=== PATIENT | female | born 1995 | race Caucasian/White ===

== ENCOUNTER → 2017-12-08 08:24 | Outpatient (CLI) | payer OTHER, SELFPAY ==
[2017-12-08 10:28] LABS: Hemoglobin 12.2 g/dL (12.0-16.0)
[2017-12-08 10:31] LABS: GTT (PREG) 1 Hour PP 50gm Dose 79 mg/dL (76-139)
== END ==
PROVIDERS: PCP Family Medicine; Visit Provider Obstetrics & Gynecology
DX: Z34.92 Encounter for supervision of normal pregnancy, unspecified, second trimester (principal)
CPT/HCPCS: 36415; 82950; 85014; 85018; 86850

== ENCOUNTER → 2018-02-01 09:51 | Outpatient (CLI) | payer OTHER, SELFPAY ==
[2018-02-02 07:55] LABS: Strep Grp B PCR NEG for Grp B Strep
== END ==
PROVIDERS: PCP Family Medicine; Visit Provider Obstetrics & Gynecology
DX: Z34.83 Encounter for supervision of other normal pregnancy, third trimester (principal)
CPT/HCPCS: 87653

== ENCOUNTER 2018-03-02 08:52 | Inpatient (IN) | payer OTHER, SELFPAY ==
[2018-03-02] MEDS: LACTATED RINGERS 1,000 ML 125 ML IV (09:30)
[2018-03-02] MEDS: OXYTOCIN PREMIX 30 UNIT/500 ML PLAST..BAG IV (09:30)
[2018-03-02 10:12] LABS: Add Manual Diff / Slide Review NO; Basophils Percent Auto 0.3 % (0-2); Eosinophils Percent Auto 1.3 % (2-4); Hematocrit 37.7 % (36-46); Hemoglobin 13.1 g/dL (12.0-16.0); Lymphocytes Percent Auto 22.4 % (25-40); Mean Corpuscular HGB Conc 34.8 % (30-36); Mean Corpuscular Hemoglobin 32.4 PG (26-34); Mean Corpuscular Volume 93.2 fL (80-100); Monocytes Percent Auto 8.3 % (3-14); Neutrophils Absolute Auto 5800 /uL (3000-5900); Neutrophils Percent Auto 67.7 % (50-75); Platelet Count 215 X10^3/uL (150-400); Red Blood Cell Count 4.04 X10^6/uL (4.0-5.2); Red Cell Distribution Width 13.7 % (11.6-14.8); White Blood Cell Count 8.5 X10^3/uL (4.5-11.0)
[2018-03-02 13:13] VITALS: BP 117/67
--- NOTE | 2018-03-02 16:55 | PM.OBHP.1 ---
OB HPI Date/Time Date of admission: 03/02/18 Date Patient Seen: 03/02/18 Time Patient Seen: 10:30 History of Present Illness Chief complaint: OBS : 2 Para: 1 Estimated Date of Delivery: 03/02/18 Estimated Gestational Age (weeks): 40 Narrative: Mis Danielle is a 23 year old female 2 para 1 at 40 weeks gestation who presents for induction of labor Indications Indication for induction OB: maternal discomfort History of Present care: good care Dating criteria: LMP confirmed by 1st trimester US Ultrasounds: normal 1st trimester US and normal mid trimester US Obstetrical complications: none Medical complications: none Preadmission Labs Blood type: 0 (-) negative -: Antibody screen: negative, GBS status: negative, HBsAG: negative, HIV: negative, HSV 1: negative, HSV 2: negative and RPR/VDLR: negative -: Chlamydia screen: not detected and Gonorrhea screen: not detected -: Rubella: immune and Varicella: immune HCT: 35 HCAB: negative PAP: Normal 1 hr GTT: 79 Prior (ies) History: 11/05/13 epid [place] 8#15oz 41 weeks Evaluation Evaluation Baseline heart rate: 135 Variability: Moderate (11-25) monitor accelerations: Present monitor decelerations: Absent Contraction Frequency (minutes): 3 Uterine Contraction Intensity: Strong/Firm Category of Tracing: I Cervical dilation (cm): 2 Cervical effacement (%): 75 station: -1 Laboratory results: Laboratory Tests 03/02/18 03/02/18 09:15 09:15 WBC 8.5 RBC 4.04 Hgb 13.1 Hct 37.7 MCV 93.2 MCH 32.4 MCHC 34.8 RDW 13.7 Plt Count 215 Neut % (Auto) 67.7 Lymph % (Auto) 22.4 L [place] % (Auto) 8.3 Eos % (Auto) 1.3 L Baso % (Auto) 0.3 Neut # (Auto) 5800 Blood Type O Negative Antibody Screen Negative PFSH Social History Smoking Status: Never smoker Meds Home Medications Medication Instructions Recorded Confirmed Type ondansetron [Zofran ODT] 4 mg SUBLINGUAL Q6HP PRN #20 odt 07/27/17 03/02/18 Rx vit-iron fum-folic ac 1 tab PO DAILY #0 08/03/17 03/02/18 History [Mynatal] Double Electric Breast Pump 1 ea [id number] .prn #1 02/15/18 03/02/18 Rx [id number] Allergies Allergy/AdvReac Type Severity Reaction Status Date / Time No Known Allergies Allergy Uncoded 11/03/17 12:42 Exam Vital Signs (past 8 hours): - 03/02/18 13:13 Blood Pressure 117/67 Narrative Exam Narrative: Generally: Patient is sitting up in bed, no acute distress Lungs: Clear to auscultation bilaterally Cardiovascular: Regular rate and rhythm Fundal height: 41 cm Estimated weight: 8 1/2 # Extremities: Trace edema, negative [place] Objective Labs Result Diagrams: 03/02/18 09:15 Labs: Laboratory Results - last 24 hr 03/02/18 03/02/18 09:15 09:15 WBC 8.5 RBC 4.04 Hgb 13.1 Hct 37.7 MCV 93.2 MCH 32.4 MCHC 34.8 RDW 13.7 Plt Count 215 Neut % (Auto) 67.7 Lymph % (Auto) 22.4 L [place] % (Auto) 8.3 Eos % (Auto) 1.3 L Baso % (Auto) 0.3 Neut # (Auto) 5800 Blood Type O Negative Antibody Screen Negative Assessment and Plan (1) 40 weeks gestation of : Current visit: Yes Status: Acute (2) Encounter for induction of labor: Current visit: Yes Status: Acute Assessment: 23-year-old 2 para 1 at 40 weeks gestation for induction of labor Plan: Pitocin per protocol 2 Epidural as necessary Expected management to spontaneous vaginal delivery
--- NOTE | 2018-03-02 18:12 | PM.OBPRVD ---
Events: Labor Induction Delivery date: 03/02/18 Intrapartal events: None Induction method: per pitocin protocol Delivery augmentation: rupture of membranes Delivery monitor: external FHT and external uterine Route of delivery: Episiotomy description: None Laceration description: Superficial (Right labial) Delivery repair: chromic (4-0) Estimated blood loss (mL): 100 Anesthesia type: Epidural Complications: None Narrative: Patient complete and pushed for 20 min. At 5:59 p.m., a live male delivered spontaneously over an intact perineum. A nuchal cord x1 reduced on the perineum. The remainder of the body delivered without difficulty and was placed on mom's abdomen. The cord was double clamped and cut. Cord bloods were obtained. The placenta delivered intact with a 3 vessel cord at 6:05 p.m.. Fundus massaged to firm. Estimated blood loss 100 cc. There was a superficial right labial laceration which was repaired with 4 0 chromic. Hemostasis was achieved. Apgars 8 at 1 min and 9 at 5 min. Epidural analgesia. . Mom and infant stable to recovery. Plan for aftercare: To routine care
[2018-03-02] MEDS: IBUPROFEN 600 MG TABLET PO (20:02)
[2018-03-02] MEDS: OXYCODONE/ACETAMINOPHEN 5/325 TABLET 2 TAB PO (21:04)
[2018-03-03] MEDS: OXYCODONE/ACETAMINOPHEN 5/325 TABLET 2 TAB PO ×4 (04:37→19:39)
[2018-03-03 05:46] LABS: Hematocrit 37.3 % (36-46); Hemoglobin 12.7 g/dL (12.0-16.0)
[2018-03-03] MEDS: IBUPROFEN 600 MG TABLET PO ×2 (08:09→16:11)
[2018-03-03] MEDS: RHO(D) IMMUNE GLOBULIN 1,500 UNIT SYRINGE 1500 UNIT IM (13:31)
[2018-03-03 14:35] VITALS: BP 100/64; PULSE 64; RESP 16; TEMP 37.1
[2018-03-03 18:27] VITALS: BP 112/70; PULSE 73; RESP 16; TEMP 36.6
[2018-03-03] MEDS: DERMOPLAST SPRAY 20% 60 ML 1 SPRAY TOP (19:34)
== END 2018-03-03 21:30 | disposition home or self-care (01) | DRG 775 ==
PROVIDERS: Admitting Provider Obstetrics & Gynecology; PCP Family Medicine; Visit Provider Obstetrics & Gynecology
DX: O26.813 Pregnancy related exhaustion and fatigue, third trimester (principal); Z3A.40 40 weeks gestation of pregnancy; Z37.0 Single live birth; O69.81X0 Labor and delivery complicated by cord around neck, without compression, not applicable or unspecified; O70.0 First degree perineal laceration during delivery
CPT/HCPCS: 01967; 36415; 59050; 59410; 85014; 85018; 85025; 85461; 86850; 86900; 86901; G0379; J2590; J2790

== ENCOUNTER 2018-04-17 18:46 | Emergency (ER) | payer OTHER, SELFPAY ==
[2018-04-17 19:10] VITALS: BP 89/61; PULSE 127; RESP 22; TEMP 39.9; O2SAT 98
[2018-04-17 19:18] VITALS: TEMP 39.9
[2018-04-17] MEDS: ACETAMINOPHEN 325 MG TABLET 975 MG PO (19:18)
--- NOTE | 2018-04-17 19:27 | DI.RAD.S_ITS ---
PROCEDURE: XR CHEST 1V INDICATIONS: suspected sepsis TECHNIQUE: One view of the chest was acquired. COMPARISON: None. FINDINGS: Surgical changes and devices: None. Lungs and pleura: No pleural effusions or pneumothorax. Lungs are clear. Mediastinum: Mediastinal contours appear normal. Heart size is normal. Bones and chest wall: No suspicious bony lesions. Overlying soft tissues appear unremarkable. IMPRESSION: No acute cardiopulmonary disease process. Dictated by: Barbara Bowling MD, PhD on 04/17/2018 at 20:06 Approved by: Barbara Bowling MD, PhD on 04/17/2018 at 20:06
--- NOTE | 2018-04-17 19:57 | ED.FEVER ---
HPI - Fever General Chief Complaint: Fever Stated Complaint: HIGH FEVER Time Seen by Provider: 04/17/18 19:53 Source: patient Mode of arrival: ambulatory Limitations: no limitations History of Present Illness HPI Narrative: The patient is a 23-year-old female who presents with overall body aches and fever. Her right breast has been hurting her quite a lot lately. She is currently 6 weeks and has been breast feeding. She states she is also extremely short of breath when she gets up to walk. They were recently in a very long car ride [place] the country they did get out to walk a however her shortness of breath is quite bad she says. She denies any cough or wheezing. She has no painful or frequent urination no vaginal bleeding. She had labor induction on 03/02/2018 and had a normal vaginal delivery MD complaint: fever Related Data Home Medications Medication Instructions Recorded Confirmed vit-iron fum-folic ac 1 tab PO DAILY #0 08/03/17 03/07/18 [Mynatal] Previous Rx's Medication Instructions Recorded ondansetron [Zofran ODT] 4 mg SUBLINGUAL Q6HP PRN #20 odt 07/27/17 Double Electric Breast Pump 1 ea [id number] .prn #1 02/15/18 [id number] oxycodone-acetaminophen [Percocet] 2 tab PO Q4-6H PRN #20 tab 03/03/18 hydrocortisone 2.5 % topical cream 1 applictn VT QD-BID PRN #28.35 03/04/18 with perineal applicator gram lidocaine 3 %-hydrocortisone 2.5 % 1 applictn VT BID #15 gram 03/04/18 (7 gram) rectal gel cephalexin [Keflex] 500 mg PO TID #21 cap 04/17/18 Allergies Allergy/AdvReac Type Severity Reaction Status Date / Time No Known Drug Allergies Allergy Verified 03/07/18 13:12 Review of Systems Review of Systems All systems reviewed & are unremarkable except as noted in HPI and below Constitutional Reports chills, Reports fatigue, Reports fever(s) and Reports weakness Cardiovascular Denies chest pain, Denies irregular heart rhythm, Denies lightheadedness, Denies palpitations, Denies dyspnea, Reports dyspnea on exertion and Denies orthopnea Respiratory Reports as per HPI, Denies cough, Denies dyspnea, Reports dyspnea on exertion and Denies wheezing Gastrointestinal Gastrointestinal: Denies abdominal pain, Denies change in bowel habits, Denies diarrhea, Denies nausea and Denies vomiting Genitourinary Denies hematuria, Denies flank pain, Denies urinary incontinence and Denies urinary urgency Musculoskeletal Denies back pain, Denies muscle weakness, Denies numbness and Denies tingling Integumentary/Breasts Reports breast swelling and Reports breast pain Neurologic Denies numbness, Denies tingling and Reports weakness Endocrine Reports fatigue and Denies palpitations Allergic/Immunologic Denies wheezing PFSH Medical History Healthy adult (Acute) Social History Smoking Status: Never smoker Exam Initial Vital Signs Initial Vital Signs: Vital Signs Temperature 103.9 F H 04/17/18 19:10 Pulse Rate 127 H 04/17/18 19:10 Respiratory Rate 22 04/17/18 19:10 Blood Pressure 89/61 L 04/17/18 19:10 Pulse Oximetry 98 04/17/18 19:10 Const General: cooperative and well developed Nutritional Appearance: well nourished Orientation: alert, awake, oriented x3 and not confused Eyes General: appearance normal, both eyes and all related structures Neck Neck: normal visual inspection, trachea midline, No lymphadenopathy, No midline deformity and No JVD Lymphatic: No lymphedema Chest Breast inspection: normal inspection of the breasts (Left breast within normal limits slightly tender to touch no abnormality appreciated) and abnormal inspection of the breast (Right breast does have some erythema no masses or abscesses no nipple discharge no cracks or ab normal nipple or areola) Resp Effort & Inspection: normal respiratory effort, able to speak in complete sentences, no respiratory distress and no use of accessory muscles Auscultation: clear to auscultation bilaterally, no rales, no rhonchi and no wheezes Cardio Rate: regular rate Rhythm: regular rhythm Heart Sounds: no click, no gallops, no murmurs and no rubs Pulses: normal peripheral pulses GI Inspection: non-distended Palpation: soft, no hepatosplenomegaly, No guarding, No pulsatile mass and No tender Auscultation: normal bowel sounds Skin General: no rashes or lesions noted, No jaundice and No petechiae Neuro General: alert, oriented x3, gait normal and no focal motor deficits Speech: speech normal Course Orders Ordered: ED Orders 04/17/18 19:27 XR chest 1V Stat 04/17/18 19:45 Complete Blood Count AUTO DIFF Stat Comprehensive Metabolic Panel Stat Lactate (Lactic Acid) Stat Lipase Stat Partial Thromboplastin Time Stat Procalcitonin Stat Prothrombin Time INR Stat 04/17/18 20:14 CT angio chest PE protocol Stat 04/17/18 20:30 Blood Culture Stat Discontinued Medications Acetaminophen (Tylenol) 975 mg PO NOW ONE Stop: 04/17/18 19:18 Last Admin: 04/17/18 19:18 Dose: 975 mg Sodium Chloride (Normal Saline 0.9%) 1,000 mls @ 1,000 mls/hr IV BOLUS ONE Stop: 04/17/18 20:26 Last Infusion: 04/17/18 21:23 Dose: 0 mls/hr Admin: 04/17/18 20:07 Dose: 1,000 mls/hr Vital Signs - 8 hr 04/17/18 20:04 04/17/18 21:26 04/18/18 00:07 Temperature 99.2 F 98.4 F Pulse Rate 106 H 75 Respiratory Rate 26 H 17 Blood Pressure 91/56 L Blood Pressure [Right Arm] 101/59 L Pulse Oximetry 98 97 MDM - Fever Lab Data Attestation: I reviewed the patient's lab results. Result diagrams: 04/17/18 19:45 04/17/18 19:45 Lab Results 04/17/18 04/17/18 04/17/18 Range/Units 19:45 19:45 19:45 WBC 8.8 (4.5-11.0) X10^3/uL RBC 4.88 (4.0-5.2) X10^6/uL Hgb 15.1 (12.0-16.0) g/dL Hct 44.6 (36-46) % MCV 91.4 (80-100) fL MCH 31.0 (26-34) PG MCHC 33.9 (30-36) % RDW 12.5 (11.6-14.8) % Plt Count 214 (150-400) X10^3/uL Neut % (Auto) 80.9 H (50-75) % Lymph % (Auto) 12.1 L (25-40) % [place] % (Auto) 6.0 (3-14) % Eos % (Auto) 0.7 L (2-4) % Baso % (Auto) 0.3 (0-2) % Neut # (Auto) 7200 H (2326-4836) /uL PT 13.7 H (10.1-12.7) SECONDS INR 1.3 (0.9-1.3) APTT 34 (26.4-36.2) SECONDS Sodium (137-145) mmol/L Potassium (3.4-5.1) mmol/L Chloride (98-107) mmol/L Carbon Dioxide (22-32) mmol/L BUN (7-17) mg/dL Creatinine (0.52-1.04) mg/dL Estimated GFR (>60) mL/min BUN/Creatinine Ratio (6-22) Glucose (70-100) mg/dL Lactate (0.7-2.1) mmol/L Calcium (8.4-10.2) mg/dL Total Bilirubin (0.2-1.3) mg/dL AST (14-36) IU/L ALT (9-52) IU/L Alkaline Phosphatase (38-126) U/L Total Protein (6.3-8.2) g/dL Albumin (3.5-5.0) g/dL Globulin (1.7-4.1) g/dL Albumin/Globulin Ratio (1.0-2.8) Lipase (23-300) U/L Procalcitonin < 0.05 (<0.5) ng/mL 04/17/18 04/17/18 Range/Units 19:45 19:45 WBC (4.5-11.0) X10^3/uL RBC (4.0-5.2) X10^6/uL Hgb (12.0-16.0) g/dL Hct (36-46) % MCV (80-100) fL MCH (26-34) PG MCHC (30-36) % RDW (11.6-14.8) % Plt Count (150-400) X10^3/uL Neut % (Auto) (50-75) % Lymph % (Auto) (25-40) % [place] % (Auto) (3-14) % Eos % (Auto) (2-4) % Baso % (Auto) (0-2) % Neut # (Auto) (6641-0198) /uL PT (10.1-12.7) SECONDS INR (0.9-1.3) APTT (26.4-36.2) SECONDS Sodium 142 (137-145) mmol/L Potassium 3.9 (3.4-5.1) mmol/L Chloride 103 (98-107) mmol/L Carbon Dioxide 22 (22-32) mmol/L BUN 15 (7-17) mg/dL Creatinine 1.00 (0.52-1.04) mg/dL Estimated GFR > 60.0 (>60) mL/min BUN/Creatinine Ratio 15.0 (6-22) Glucose 89 (70-100) mg/dL Lactate 0.9 (0.7-2.1) mmol/L Calcium 9.4 (8.4-10.2) mg/dL Total Bilirubin 0.8 (0.2-1.3) mg/dL AST 36 (14-36) IU/L ALT 39 (9-52) IU/L Alkaline Phosphatase 85 (38-126) U/L Total Protein 8.4 H (6.3-8.2) g/dL Albumin 4.8 (3.5-5.0) g/dL Globulin 3.6 (1.7-4.1) g/dL Albumin/Globulin Ratio 1.3 (1.0-2.8) Lipase 96 (23-300) U/L Procalcitonin (<0.5) ng/mL Point of Care Testing Test Results Negative Urine Dip Bedside Urine Glucose Negative Bedside Urine Bilirubin - Negative Bedside Urine Ketone ++ 40 Urine Specific [place] 1.015 Bedside Urine Occult Blood - Negative Bedside Urine pH 6.0 Bedside Urine Protein - Negative Bedside Urine Urobilinogen - Negative Bedside Urine Nitrite - Negative Bedside Urine Leukocytes - Negative Esterase Imaging Data Chest x-ray: Radiologist's impression: PROCEDURE: XR CHEST 1V INDICATIONS: suspected sepsis TECHNIQUE: One view of the chest was acquired. COMPARISON: None. FINDINGS: Surgical changes and devices: None. Lungs and pleura: No pleural effusions or pneumothorax. Lungs are clear. Mediastinum: Mediastinal contours appear normal. Heart size is normal. Bones and chest wall: No suspicious bony lesions. Overlying soft tissues appear unremarkable. IMPRESSION: No acute cardiopulmonary disease process. 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 Heart rate has definitely improved with fever control and IV fluids. She appears to have mastitis of her right breast. No evidence of PE has no leukocytosis and normal lactic acid. She feels ready and able to go home. Discharge Plan Departure Patient Disposition: Home Clinical Impression: Mastitis, acute Discharge Date/Time: 04/18/18 00:10 Interventions: ED Discharge Assessment Last Done: 04/18/18 00:07 Instructions: DI for Mastitis Activity Restrictions/Additional Instructions: *You have been diagnosed with mastitis *What to do: Warm compresses, continue breast-feeding, continue pumping *Continue to take medications as directed Keflex 500 mg 3 times a day *Follow up with your primary care provider in 2-3 days *Return to ER if you should have worsening redness, fever, pain or any new, worsening or concerning symptoms Prescriptions: New cephalexin [Keflex] 500 mg capsule 500 mg PO TID Qty: 21 RF: 0 No Action ondansetron [Zofran ODT] 4 MG tablet,disintegrating 4 mg Sublingual Q6HP PRNQty: 20 RF: 1 vit-iron fum-folic ac [Mynatal] 1 EACH capsule 1 tab PO DAILY Qty: 0 RF: 0 hydrocortisone [Anusol-HC] 2.5 % cream with perineal applicator 1 applictn VT QD-BID PRN (Reason: hemorrhoids) Qty: 28.35 RF: 1 lidocaine HCl-hydrocortison ac 3 %-2.5 % (7 gram) gel 1 applictn VT BID Qty: 15 RF: 1 Double Electric Breast Pump 1 ea [id number] .prn Qty: 1 RF: 0 oxycodone-acetaminophen [Percocet] 5-325 mg tablet 2 tab PO Q4-6H PRN (Reason: pain) Qty: 20 RF: 0 Referrals: Keli Forbes MD [Primary Care Provider] -
[2018-04-17 20:00] LABS: Add Manual Diff / Slide Review NO; Basophils Percent Auto 0.3 % (0-2); Eosinophils Percent Auto 0.7 % (2-4); Hematocrit 44.6 % (36-46); Hemoglobin 15.1 g/dL (12.0-16.0); Lymphocytes Percent Auto 12.1 % (25-40); Mean Corpuscular HGB Conc 33.9 % (30-36); Mean Corpuscular Volume 91.4 fL (80-100); Neutrophils Absolute Auto 7200 /uL (3000-5900); Neutrophils Percent Auto 80.9 % (50-75); Platelet Count 214 X10^3/uL (150-400); Red Blood Cell Count 4.88 X10^6/uL (4.0-5.2); Red Cell Distribution Width 12.5 % (11.6-14.8); White Blood Cell Count 8.8 X10^3/uL (4.5-11.0)
[2018-04-17 20:04] VITALS: BP 101/59; PULSE 106; RESP 26; O2SAT 98
[2018-04-17 20:07] LABS: INR 1.3 (0.9-1.3); Prothrombin Time 13.7 SECONDS (10.1-12.7)
[2018-04-17] MEDS: SODIUM CHLORIDE 0.9% 1,000 ML 1000 ML IV (20:07)
[2018-04-17 20:10] LABS: PTT Partial Thromboplastin Tim 34 SECONDS (26.4-36.2)
[2018-04-17 20:11] LABS: Lactate (Lactic Acid) 0.9 mmol/L (0.7-2.1)
[2018-04-17 20:14] LABS: Alanine Aminotransferase 39 IU/L (9-52); Albumin 4.8 g/dL (3.5-5.0); Albumin Globulin Ratio 1.3 (1.0-2.8); Alkaline Phosphatase 85 U/L (38-126); Aspartate Aminotransferase 36 IU/L (14-36); Bilirubin Total 0.8 mg/dL (0.2-1.3); Blood Urea Nitrogen 15 mg/dL (7-17); Calcium 9.4 mg/dL (8.4-10.2); Carbon Dioxide 22 mmol/L (22-32); Chloride 103 mmol/L (98-107); Estimated Glomerular Filt Rate > 60.0 mL/min (>60); Globulin 3.6 g/dL (1.7-4.1); Glucose 89 mg/dL (70-100); Lipase 96 U/L (23-300); Potassium 3.9 mmol/L (3.4-5.1); Sodium 142 mmol/L (137-145); Total Protein 8.4 g/dL (6.3-8.2)
--- NOTE | 2018-04-17 20:14 | DI.CT.S_ITS ---
PROCEDURE: CT ANGIO CHEST PE PROTOCOL INDICATIONS: short of breath tachy, ca ride, post TECHNIQUE: After the administration of intravenous contrast, 2 mm thick sections acquired from the pulmonary apices to the posterior costophrenic angles. 3-dimensional maximum intensity projection (MIP) coronal and sagittal reformats were then acquired through the thorax. For radiation dose reduction, the following was used: automated exposure control, adjustment of mA and/or kV according to patient size. COMPARISON: None. FINDINGS: Image quality: Excellent. Pulmonary arteries: Pulmonary arteries are normal in size, and demonstrate no intraluminal filling defects to suggest central pulmonary embolism. Lungs and pleura: No acute consolidation. Scattered subsegmental atelectasis. No pleural effusions or pneumothorax. Central and peripheral airways are patent. Mediastinum: Heart size is normal, without pericardial effusion. No mediastinal or hilar adenopathy. Thoracic aorta is normal in caliber and enhancement. Esophagus is normal in caliber, without hiatal hernia. Bones and chest wall: No suspicious bony lesions. Ribs and thoracic spine appear intact throughout. Thyroid gland unremarkable. No axillary or supraclavicular adenopathy. Abdomen: Visualized upper abdominal solid organs appear normal in the early arterial phase of enhancement. IMPRESSION: No evidence of pulmonary embolism. No acute consolidation. Dictated by: Fred Diaz M.D. on 04/18/2018 at 7:07 Approved by: Fred Diaz M.D. on 04/18/2018 at 7:10
[2018-04-17 20:15] LABS: HEMOLYSIS 52 (0-50)
[2018-04-17 20:34] LABS: Procalcitonin < 0.05 ng/mL (<0.5)
--- NOTE | 2018-04-17 21:05 | PC.NURSE ---
Pt assisted to use hospital breast pump on loan from center to pump breast milk, will go to CT when done. Pt educated on manual expression and the importance of completely emptying the breast- pt verbalizes understanding.
[2018-04-17 21:26] VITALS: TEMP 37.3
[2018-04-18 00:07] VITALS: BP 91/56; PULSE 75; RESP 17; TEMP 36.9; O2SAT 97
== END 2018-04-18 00:10 | disposition home or self-care (01) ==
PROVIDERS: Emergency Provider Emergency Medicine; Family Provider Obstetrics & Gynecology; PCP Family Medicine
DX: N61.0 Mastitis without abscess (principal)
CPT/HCPCS: 36415; 36591; 71045; 71275; 80053; 81003; 81025; 83605; 83690; 84145; 85025; 85610; 85730; 87040; 96360; 99283; 99284; 99291; 99292; Q9967

== ENCOUNTER → 2019-04-22 11:06 | Outpatient (CLI) | payer OTHER, SELFPAY ==
[2019-04-22 11:09] LABS: Bacteria Urine None Seen; WBC Urine None Seen (0-5/HPF)
[2019-04-22 12:29] LABS: Appearance Urine UA CLEAR; Bilirubin Urine UA NEGATIVE (NEGATIVE); Color Urine UA YELLOW; Glucose Urine UA NEGATIVE (Negative); Ketones Urine UA NEGATIVE (NEGATIVE); Leukocyte Esterase Urine UA NEGATIVE (NEGATIVE); Nitrite Urine UA NEGATIVE (Negative); Occult Blood Urine UA 2+ (Negative); Protein Urine UA NEGATIVE (Negative); Urobilinogen Urine UA 0.2 E.U./dL (0.2)
[2019-04-22 12:30] LABS: Culture Indicated Urine Cult Not Indicated; RBC Urine 5-10/HPF (0-5/HPF); Squamous Epithelial Cell Urine 5-10 /HPF (0-5/HPF)
== END ==
PROVIDERS: Family Provider Physician Assistant; PCP Physician Assistant; Visit Provider Obstetrics & Gynecology
DX: R39.9 Unspecified symptoms and signs involving the genitourinary system (principal)
CPT/HCPCS: 81001

== ENCOUNTER → 2019-04-27 07:44 | Outpatient (CLI) | payer OTHER, SELFPAY ==
--- NOTE | 2019-04-27 07:45 | DI.US.S_ITS ---
PROCEDURE: US PELVIC COMPLETE INDICATIONS: EVALUATE RECURRENT PELVIC PAIN. Additional history: . LMP 04/07/2019. IUD removed approximately 2-3 months ago. Pain left greater than right. TECHNIQUE: Real-time scanning was performed of the pelvic organs, with image documentation. Additional endovaginal scanning was necessary due to incomplete visualization of the adnexal and endometrial structures by transabdominal scanning. COMPARISON: OB ultrasound 07/23/2017. FINDINGS: Transabdominal scanning: Limited scanning through the kidneys shows no hydronephrosis. Trace fluid in the pelvic cul-de-sac. Endovaginal scanning: Uterus: Uterus is retroverted and normal in size at 7.8 x 4.2 x 5.5 cm. The endometrium measures 14 mm in combined thickness. Ovaries: Right ovary measures 2.9 x 1.6 x 2.0 cm. Left ovary measures 3.4 x 1.9 x 2.8 cm. There is a thickwalled and heterogeneous cyst measuring 2.4 x 1.8 x 1.9 cm with peripheral flow. Normal blood flow in the ovaries. No torsion. Right kidney measures 11.9 cm. Left kidney measures 12.2 cm. No hydronephrosis. IMPRESSION: 1. Normal uterus and endometrium. 2. Small left ovarian cyst measuring 2.4 cm. This most likely represents a corpus luteum or hemorrhagic cyst and is likely the source of pelvic pain. 3. Trace free fluid in the pelvic cul-de-sac. Dictated by: Ronni Sanderson M.D. on 04/27/2019 at 10:25 Approved by: Ronni Sanderson M.D. on 04/27/2019 at 10:32
== END ==
PROVIDERS: Family Provider Physician Assistant; PCP Physician Assistant; Visit Provider Obstetrics & Gynecology
DX: R10.2 Pelvic and perineal pain (principal); N83.202 Unspecified ovarian cyst, left side
CPT/HCPCS: 76830; 76856

== ENCOUNTER → 2019-09-24 16:18 | Outpatient (CLI) | payer OTHER, SELFPAY ==
[2019-09-24 16:57] LABS: Influenza A - CEPHEID Flu A POSITIVE (NEGATIVE); Influenza B - CEPHEID Flu B NEGATIVE (NEGATIVE)
== END ==
PROVIDERS: Family Provider Physician Assistant; PCP Physician Assistant; Visit Provider Nurse Practitioner
DX: R68.89 Other general symptoms and signs (principal)
CPT/HCPCS: 87502

== ENCOUNTER 2019-10-25 22:00 | Emergency (ER) | payer OTHER, SELFPAY ==
[2019-10-25 22:11] VITALS: BP 113/63; PULSE 87; RESP 18; TEMP 36.4; O2SAT 98
--- NOTE | 2019-10-25 22:11 | DI.RAD.S_ITS ---
PROCEDURE: XR CHEST 2V INDICATIONS: smoke exposure a few days ago, cough TECHNIQUE: 2 views of the chest were acquired. COMPARISON: [facility], CR, XR CHEST 1V, 04/17/2018, 19:46. FINDINGS: Surgical changes and devices: None. Lungs and pleura: Lungs are clear. No pleural effusions or pneumothorax. Mediastinum: Mediastinal contours are normal. Heart size is normal. Bones and chest wall: No suspicious bony abnormalities. Soft tissues appear unremarkable. IMPRESSION: Normal for age, source of current persistent cough symptoms is not seen. Dictated by: Diego Parker M.D. on 10/26/2019 at 8:20 Approved by: Diego Parker M.D. on 10/26/2019 at 8:21
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
[2019-10-25] MEDS: ALBUTEROL HFA PREPACK 1 BOX MISC (22:42)
== END 2019-10-25 23:08 | disposition home or self-care (01) ==
PROVIDERS: Emergency Provider Emergency Medicine; Family Provider Physician Assistant; PCP Physician Assistant
DX: T59.811A Toxic effect of smoke, accidental (unintentional), initial encounter (principal); J68.0 Bronchitis and pneumonitis due to chemicals, gases, fumes and vapors
CPT/HCPCS: 71046; 88740; 99282; 99283

== ENCOUNTER → 2020-01-01 11:18 | Outpatient (CLI) | payer OTHER, SELFPAY ==
--- NOTE | 2020-01-01 11:19 | DI.US.S_ITS ---
PROCEDURE: US PELVIC COMPLETE INDICATIONS: PAINFUL PERIODS TECHNIQUE: Real-time scanning was performed of the pelvic organs, with image documentation. Additional endovaginal scanning was necessary due to incomplete visualization of the adnexal and endometrial structures by transabdominal scanning. COMPARISON: [facility], , PELVIC COMPLETE, 04/27/2019, 8:05. [facility], , US PELVIC COMPLETE, 05/31/2019, 10:24. FINDINGS: Transabdominal scanning: Limited scanning through the kidneys shows no hydronephrosis. No pathologic free abdominal or pelvic fluid. Endovaginal scanning: Uterus: Uterus is normal in size at 9.4 x 4.2 x 6 cm. The endometrium measures 9 mm in combined thickness. Ovaries: The right ovary measures 2.9 x 1.6 x 1.9 cm. The left ovary measures 3 x 2.2 x 2.6 cm. The ovaries have a normal sonographic appearance. No adnexal masses are seen. IMPRESSION: No imaging explanation is found for this patient's presenting symptoms. Dictated by: Dank Friedman M.D. on 01/01/2020 at 12:04 Approved by: Dank Friedman M.D. on 01/01/2020 at 12:05
== END ==
PROVIDERS: Family Provider Physician Assistant; PCP Physician Assistant; Referring Provider Obstetrics & Gynecology; Visit Provider Obstetrics & Gynecology
DX: N94.6 Dysmenorrhea, unspecified (principal); R10.2 Pelvic and perineal pain
CPT/HCPCS: 76830; 76856

== ENCOUNTER → 2020-03-13 08:43 | Outpatient (CLI) | payer OTHER, SELFPAY ==
[2020-03-13 10:04] LABS: Add Manual Diff / Slide Review NO; Basophils Absolute Auto 0 /uL (0-100); Basophils Percent Auto 0.4 % (0-2); Eosinophils Absolute Auto 100 /uL (0-450); Hematocrit 38.8 % (36-46); Hemoglobin 13.2 g/dL (12.0-16.0); Lymphocytes Absolute Auto 1600 /uL (1100-4500); Mean Corpuscular HGB Conc 34.1 % (30-36); Mean Corpuscular Hemoglobin 30.4 PG (26-34); Mean Corpuscular Volume 89.3 fL (80-100); Monocytes Absolute Auto 400 /uL (0-900); Monocytes Percent Auto 6.7 % (3-14); Neutrophils Absolute Auto 3900 /uL (1500-7000); Neutrophils Percent Auto 63.9 % (50-75); Platelet Count 238 X10^3/uL (150-400); Red Blood Cell Count 4.34 X10^6/uL (4.0-5.2)
[2020-03-13 10:15] LABS: Appearance Urine UA CLEAR; Bilirubin Urine UA NEGATIVE (NEGATIVE); Color Urine UA YELLOW; Glucose Urine UA NEGATIVE (Negative); Ketones Urine UA NEGATIVE (NEGATIVE); Leukocyte Esterase Urine UA NEGATIVE (NEGATIVE); Nitrite Urine UA NEGATIVE (Negative); Occult Blood Urine UA TRACE-LYSED (Negative); Protein Urine UA NEGATIVE (Negative); Specific Gravity Urine UA 1.015 (1.000-1.035); Urobilinogen Urine UA 0.2 E.U./dL (0.2)
[2020-03-13 11:10] LABS: Hepatitis B Surface Antigen NEGATIVE s/c (NEGATIVE)
[2020-03-13 11:28] LABS: HIV 1 & 2 Ab/Ag 4th Gen Combo NEGATIVE (NEGATIVE); Hep C Virus Ab w/Reflex Quant NEGATIVE s/c (NEGATIVE)
[2020-03-13 17:20] LABS: Urine N gonorrhoeae NOT DETECTED
[2020-03-13 17:28] LABS: Urine Chlamydia NOT DETECTED
[2020-03-14 05:36] LABS: RPR Screen Non Reactive (Non Reactive)
[2020-03-14 09:09] LABS: Varicella IgG Antibody 237 index (Immune >165)
== END ==
PROVIDERS: Family Provider Physician Assistant; Referring Provider Obstetrics & Gynecology; Visit Provider Obstetrics & Gynecology
DX: Z34.91 Encounter for supervision of normal pregnancy, unspecified, first trimester (principal); Z11.59 Encounter for screening for other viral diseases
CPT/HCPCS: 36415; 80055; 81003; 86787; 86803; 86850; 86900; 86901; 87086; 87389; 87491; 87591

== ENCOUNTER 2020-04-01 08:58 | Emergency (ER) | payer OTHER, SELFPAY ==
[2020-04-01 09:06] VITALS: BP 114/69; PULSE 74; RESP 18; TEMP 36.9; O2SAT 100
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
[2020-04-01] MEDS: METOCLOPRAMIDE 10 MG/2 ML INJ IV (09:38)
[2020-04-01] MEDS: diphenhydrAMINE 50 MG/ML VIAL 25 MG IV (09:38)
[2020-04-01] MEDS: SODIUM CHLORIDE 0.9% 1,000 ML 1000 ML IV ×2 (09:39→11:29)
[2020-04-01 09:50] LABS: Add Manual Diff / Slide Review NO; Basophils Absolute Auto 0 /uL (0-100); Basophils Percent Auto 0.3 % (0-2); Eosinophils Absolute Auto 100 /uL (0-450); Eosinophils Percent Auto 1.8 % (2-4); Hematocrit 38.9 % (36-46); Hemoglobin 13.4 g/dL (12.0-16.0); Lymphocytes Absolute Auto 1900 /uL (1100-4500); Mean Corpuscular HGB Conc 34.4 % (30-36); Mean Corpuscular Hemoglobin 30.8 PG (26-34); Mean Corpuscular Volume 89.6 fL (80-100); Monocytes Absolute Auto 300 /uL (0-900); Monocytes Percent Auto 5.5 % (3-14); Neutrophils Absolute Auto 4000 /uL (1500-7000); Neutrophils Percent Auto 62.4 % (50-75); Platelet Count 240 X10^3/uL (150-400); Red Blood Cell Count 4.33 X10^6/uL (4.0-5.2); Red Cell Distribution Width 13.4 % (11.6-14.8); White Blood Cell Count 6.3 X10^3/uL (4.5-11.0)
[2020-04-01 09:57] LABS: Alanine Aminotransferase 13 IU/L (<35); Albumin 3.9 g/dL (3.5-5.0); Albumin Globulin Ratio 1.1 (1.0-2.8); Alkaline Phosphatase 45 U/L (38-126); Aspartate Aminotransferase 21 IU/L (14-36); BUN Creatinine Ratio 13.3 (6-22); Bilirubin Total 0.4 mg/dL (0.2-1.3); Blood Urea Nitrogen 8 mg/dL (7-17); Calcium 9.1 mg/dL (8.4-10.2); Carbon Dioxide 25 mmol/L (22-32); Chloride 104 mmol/L (98-107); Estimated Glomerular Filt Rate > 60.0 mL/min (>60); Globulin 3.4 g/dL (1.7-4.1); Glucose 86 mg/dL (70-100); HEMOLYSIS < 15 (0-50); Potassium 3.7 mmol/L (3.4-5.1); Sodium 135 mmol/L (137-145); Total Protein 7.3 g/dL (6.3-8.2)
[2020-04-01 10:29] VITALS: PULSE 60; O2SAT 100
[2020-04-01 10:30] VITALS: BP 107/57; PULSE 68; O2SAT 100
[2020-04-01 10:48] LABS: Bacteria Urine Few (2-10); Culture Indicated Urine Specimen Cultured; RBC Urine 0-1/HPF (0-5/HPF); Squamous Epithelial Cell Urine 0-1 /HPF (0-5/HPF); WBC Urine 0-1/HPF (0-5/HPF)
[2020-04-01 11:00] VITALS: BP 99/58; PULSE 71; O2SAT 100
[2020-04-01 11:28] VITALS: BP 102/59; PULSE 63; O2SAT 100
[2020-04-01 11:30] VITALS: BP 105/61; PULSE 62; O2SAT 100
== END 2020-04-01 12:15 | disposition home or self-care (01) ==
PROVIDERS: Emergency Provider Emergency Medicine; Family Provider Physician Assistant; PCP Obstetrics & Gynecology
DX: O21.0 Mild hyperemesis gravidarum (principal); Z3A.11 11 weeks gestation of pregnancy
CPT/HCPCS: 36415; 80053; 81003; 81015; 81025; 85025; 87077; 87086; 96361; 96374; 96375; 99284; J1200; J2765

== ENCOUNTER → 2020-05-10 07:04 | Outpatient (CLI) | payer OTHER, SELFPAY ==
[2020-05-13 18:34] LABS: AFP, Serum 23.9 ng/mL (.); Calc Gestational Age Ultrasound (.); Estriol, Free 1.73 ng/mL (.); Inhibin A, Dimeric 119.88 pg/mL (.); Inhibin A, MoM 0.87 (.); Maternal Ethnicity Caucasian (.); Maternal Weight 198 lbs (.); Number of Fetuses No (.); OSBR Risk 1 IN 10000 (.); Results Report (.); Test Results *Screen Negative* (.); hCG, MoM 1.08 (.); hCG, Serum 29923 mIU/mL (.)
== END ==
PROVIDERS: Family Provider Physician Assistant; Referring Provider Obstetrics & Gynecology; Visit Provider Obstetrics & Gynecology
DX: Z34.82 Encounter for supervision of other normal pregnancy, second trimester (principal); Z3A.16 16 weeks gestation of pregnancy
CPT/HCPCS: 36415; 82105; 82677; 84702; 86336

== ENCOUNTER → 2020-05-31 10:43 | Outpatient (CLI) | payer OTHER, SELFPAY ==
--- NOTE | 2020-05-31 10:44 | DI.US.S_ITS ---
PROCEDURE: US OB >= 14 WEEKS FETUS INDICATIONS: Anatomy Scan OUTSIDE/PRIOR DATING DATA: Last menstrual period (LMP): January 12, 2020. LMP-based estimated date of delivery (BUSTER): October 18, 2020 . First dating scan (date and location): March 13, 2020 . Estimated date of delivery (BUSTER) from first dating scan: October 14, 2020 . TECHNIQUE: Real-time scanning was performed of the fetus, with image documentation and biometric measurements. Endovaginal scanning: Not performed COMPARISON: [facility], , OB >= 14 WEEKS FETUS, 05/09/2020, 13:47. FINDINGS: General: A single living intrauterine gestation is present. Presentation: Vertex. Placenta: Placental position is anterior , without previa. Amniotic fluid index: 7.8 cm, normal range is 5-24 cm. Largest vertical pocket measured 3.4 cm heart rate: 132 beats per minute. Maternal cervical canal: 4.3 cm long. Normal lower limit is 2.5 cm. biometrics: Biparietal diameter: 5.0 cm, correlating with 21 weeks and 1 day Head circumference: 18.5 cm, correlating with 20 weeks and 6 days Abdominal circumference: 15.8 cm, correlating with 21 weeks and 0 days Femur length: 3.4 cm, correlating with 20 weeks and 5 days Estimated gestational age from initial scan: not applicable. Composite gestational age from present scan: 21 weeks and 0 days Estimated weight and percentile: 381 g which correlates with the 60th percentile based off gestational age. Measurement variability for biometric dating: +/- 7 days from 14 weeks to 15 weeks 6 days gestation, +/- 10 days from 16 weeks to 21 weeks 6 days gestation, +/- 2 weeks from 22 weeks to 27 weeks 6 days gestation, +/- 3 weeks for 28 weeks gestation or later. weight reference: 4500 g or EFW >90/95% is considered macrosomia or large for gestational age. EFW <10% is small for gestational age. EFW 5% or less is considered intra-uterine growth restriction. Anatomic survey: Neuro: Ventricles are non-dilated at less than 10 mm. Cisterna magna is normal at 3-11 mm. Cerebellum is normal in size and morphology. Nuchal skin fold: Normal at less than 6 mm between 14-21 weeks gestational age. Face: Nose and lips, facial profile are normal. Spine: No evidence for spina bifida. Heart: 4-chambered heart is present, with normal ventricular outflow tracts. Diaphragm: Diaphragm is intact. Stomach: Left-sided stomach is present. Kidneys: No hydronephrosis. Normal is less than 5 mm in 2nd trimester, less than 7 mm in 3rd trimester. Cord: 3-vessel cord has orthotopic insertion. Bladder: Normal in size. Extremities: All 4 extremities identified. IMPRESSION: Single living intrauterine gestation with an estimated sonographic gestational age of approximately 21 weeks and 0 days. Expected interval growth has occurred. Estimated weight is 381 g which correlates with the 60th percentile based off gestational age. Normal routine second-trimester anatomic screening survey. Dictated by: Richie Webber M.D. on 05/31/2020 at 15:24 Approved by: Richie Webber M.D. on 05/31/2020 at 15:29
== END ==
PROVIDERS: Family Provider Physician Assistant; Referring Provider Obstetrics & Gynecology; Visit Provider Obstetrics & Gynecology
DX: Z34.82 Encounter for supervision of other normal pregnancy, second trimester (principal); Z3A.21 21 weeks gestation of pregnancy
CPT/HCPCS: 76811

== ENCOUNTER → 2020-06-04 10:58 | Outpatient (CLI) | payer OTHER, SELFPAY ==
[2020-06-04 14:20] LABS: Urine N gonorrhoeae NOT DETECTED
[2020-06-04 14:32] LABS: Urine Chlamydia NOT DETECTED
== END ==
PROVIDERS: Family Provider Physician Assistant; Visit Provider Obstetrics & Gynecology
DX: Z34.82 Encounter for supervision of other normal pregnancy, second trimester (principal); Z3A.20 20 weeks gestation of pregnancy
CPT/HCPCS: 87491; 87591

== ENCOUNTER → 2020-07-15 06:57 | Outpatient (CLI) | payer OTHER, SELFPAY ==
[2020-07-15 09:36] LABS: Hematocrit 35.8 % (36-46); Hemoglobin 12.5 g/dL (12.0-16.0)
[2020-07-15 09:44] LABS: GTT (PREG) 1 Hour PP 50gm Dose 104 mg/dL (76-139)
== END ==
PROVIDERS: Family Provider Physician Assistant; Referring Provider Obstetrics & Gynecology; Visit Provider Obstetrics & Gynecology
DX: Z34.82 Encounter for supervision of other normal pregnancy, second trimester (principal); Z3A.26 26 weeks gestation of pregnancy
CPT/HCPCS: 36415; 82950; 85014; 85018; 86850

== ENCOUNTER → 2020-09-18 09:48 | Outpatient (CLI) | payer OTHER, SELFPAY ==
[2020-09-19 08:23] LABS: Strep Grp B PCR NEG for Grp B Strep
== END ==
PROVIDERS: Family Provider Physician Assistant; Visit Provider Obstetrics & Gynecology
DX: Z34.83 Encounter for supervision of other normal pregnancy, third trimester (principal); Z3A.35 35 weeks gestation of pregnancy
CPT/HCPCS: 87653

== ENCOUNTER 2020-09-21 11:41 | Outpatient (CLI) | payer OTHER, SELFPAY ==
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
== END 2020-09-21 12:06 | disposition home or self-care (01) ==
LOC: OB 09-23 08:15
PROVIDERS: Family Provider Physician Assistant; Referring Provider Nurse Practitioner Obstetrics & Gynecology; Visit Provider Nurse Practitioner Obstetrics & Gynecology
DX: O36.8130 Decreased fetal movements, third trimester, not applicable or unspecified (principal); Z3A.36 36 weeks gestation of pregnancy
CPT/HCPCS: 59025; G0378; G0379

== ENCOUNTER → 2020-10-15 10:38 | Outpatient (CLI) | payer OTHER, SELFPAY ==
--- NOTE | 2020-10-15 10:42 | DI.US.S_ITS ---
PROCEDURE: US PERIPH VENOUS LOW EXTREM RT INDICATIONS: R/O R leg DVT TECHNIQUE: Real-time imaging, as well as color and pulse Doppler interrogation, were performed of the lower extremity deep veins from the inguinal ligament to the popliteal fossa. COMPARISON: None. FINDINGS: The common femoral, femoral and popliteal veins are normally compressible, and free of intraluminal thrombus. Color and pulse Doppler demonstrate normal phasic intraluminal flow. There is normal augmentation response to distal compression maneuver. IMPRESSION: Negative for deep venous thrombosis. Dictated by: Dank Friedman M.D. on 10/15/2020 at 11:09 Approved by: Dank Friedman M.D. on 10/15/2020 at 11:09
== END ==
PROVIDERS: Family Provider Physician Assistant; Referring Provider Obstetrics & Gynecology; Visit Provider Obstetrics & Gynecology
DX: Z34.90 Encounter for supervision of normal pregnancy, unspecified, unspecified trimester (principal); R22.41 Localized swelling, mass and lump, right lower limb
CPT/HCPCS: 93971

== ENCOUNTER 2020-10-17 07:06 | Inpatient (IN) | payer OTHER, SELFPAY ==
--- NOTE | 2020-10-17 07:16 | P.HPOB_ITS ---
OB HPI Date/Time Date of admission: 10/17/20 Date Patient Seen: 10/17/20 Time Patient Seen: 07:17 History of Present Condition Chief complaint: Evaluation of labor/Induction : 4 Para: 2 Estimated Date of Delivery: 10/18/20 Estimated Gestational Age (weeks): 39.6 Narrative: Mis Danielle is a 25 year old female 4 para 2 at 39- ,6/7 weeks gestation for induction of labor History of Present care: good care, initiated at week # (8), number of visits (12) and pounds weight gain (46) Dating criteria: LMP confirmed by 1st trimester US Ultrasounds: normal 1st trimester US and normal mid trimester US Obstetrical complications: none Medical complications: none Preadmission Labs Blood type: 0 (-) negative -: Antibody screen: negative, GBS status: negative, HBsAG: negative, HIV: negative and RPR/VDLR: negative -: Chlamydia screen: not detected and Gonorrhea screen: not detected -: Rubella: immune and Varicella: not immune HCT: 35.8 HCAB: negative PAP: Normal Quad screen: Normal Urine: neg 1 hr GTT: 104 Prior (ies) History: 2 Evaluation Evaluation Baseline heart rate: 140 Variability: Moderate (11-25) monitor accelerations: Present monitor decelerations: Absent Contraction Frequency (minutes): 7 Uterine Contraction Intensity: Mild Status: Category l Cervical dilation (cm): 2 Cervical effacement (%): 80 station: -1 [facility] Medical History (Updated 10/02/20 @ 09:08 by Allison Espinoza MD) Anemia Anxiety Asthma Constipation Depression Healthy adult Hemorrhoids during Mastitis, right, acute (04/17/18) Ovarian cyst PTSD (post-traumatic stress disorder) (spontaneous vaginal delivery) (~11/05/13) (spontaneous vaginal delivery) (~03/02/18) Trauma Type O blood, Rh negative UTI (urinary tract infection) Surgical History S/P wisdom tooth extraction Family History Mother Diabetes mellitus Sister Mental health disorder Disassociation disorder Grandfather Diabetes mellitus Blind Grandmother C. difficile diarrhea Dementia Diabetes mellitus Stroke Grandfather Family estrangement Myocardial infarction Grandmother Alcoholic Family estrangement Father Family estrangement No known health problems Hypertension Social History marital status: number of children: 2 household members: spouse and children pets and animals: Yes (x 1 Dog; x 2 Cats) education level: college occupational status: unemployed current occupational exposures/hazards: No special irais needs: No Smoking Status: Never smoker second hand exposure: No alcohol intake: former substance use type: does not use Meds Home Medications and Allergies Home Medications Medication Instructions Recorded Confirmed Type prenat.vits,booker,[id number] 1 tab PO DAILY 02/06/20 10/10/20 History nitrofurantoin monohyd/m-cryst 100 mg PO BID #10 cap 04/01/20 10/10/20 Rx [Macrobid] metoclopramide HCl 10 mg tablet 10 mg PO Q6H PRN #20 tab 04/02/20 10/10/20 Rx ondansetron 4 mg disintegrating 4 mg PO Q6H #20 tab 04/15/20 10/10/20 Rx tablet Double Electric Breast Pump #1 ea 07/02/20 10/10/20 Rx pantoprazole 20 mg tablet,delayed See Rx Instructions .ROUTE 09/27/20 10/10/20 Rx release .COMPLEX #90 tab hydrocortisone 2.5 % topical cream See Rx Instructions .ROUTE 10/11/20 Rx with perineal applicator .COMPLEX #30 g hydrocortisone acetate 25 mg 25 mg TN DAILY #12 each 10/11/20 Rx rectal suppository Allergies Allergy/AdvReac Type Severity Reaction Status Date / Time No Known Drug Allergies Allergy Verified 10/10/20 15:46 Exam Vital Signs (past 8 hours): Generally: Patient in mild discomfort secondary to contractions only Lungs: Clear to auscultation bilaterally Cardiovascular: Regular rate and rhythm Fundal height: 40 cm Estimated weight: 8-1/2 lb Extremities: 1+ edema, 1+ DTRs Assessment and Plan Assessment and Plan Assessment and Plan narrative: Assessment: 25-year-old 4 para 2 at 39-,6/7 weeks gestation for induction of labor Plan: Pitocin per protocol 2 Epidural as necessary Artificial rupture of membranes when able Expected management to spontaneous vaginal delivery Time Spent with Patient Total time spent with greater than 50% in coordination of care (as documented) at patient's floor/unit and/or counseling patient:: 15-24 minutes
[2020-10-17] MEDS: LACTATED RINGERS 1,000 ML 100 ML IV (08:00)
[2020-10-17] MEDS: OXYTOCIN PREMIX 30 UNIT/500 ML PLAST..BAG IV (08:57)
[2020-10-17 09:14] LABS: Add Manual Diff / Slide Review NO; Basophils Absolute Auto 0 /uL (0-100); Basophils Percent Auto 0.3 % (0-2); Eosinophils Absolute Auto 100 /uL (0-450); Eosinophils Percent Auto 1.6 % (2-4); Hematocrit 38.8 % (36-46); Hemoglobin 13.2 g/dL (12.0-16.0); Lymphocytes Absolute Auto 1900 /uL (1100-4500); Lymphocytes Percent Auto 22.3 % (25-40); Mean Corpuscular Hemoglobin 31.9 PG (26-34); Mean Corpuscular Volume 93.6 fL (80-100); Monocytes Absolute Auto 700 /uL (0-900); Monocytes Percent Auto 7.8 % (3-14); Neutrophils Absolute Auto 5800 /uL (1500-7000); Platelet Count 182 X10^3/uL (150-400); Red Blood Cell Count 4.14 X10^6/uL (4.0-5.2); Red Cell Distribution Width 13.5 % (11.6-14.8); White Blood Cell Count 8.6 X10^3/uL (4.5-11.0)
[2020-10-17 09:54] VITALS: BP 116/83
[2020-10-17] MEDS: CALCIUM CARBONATE 500 MG TAB 1000 MG PO (10:25)
--- NOTE | 2020-10-17 11:50 | PM.OBPNLAB ---
Date/Time Date Patient Seen: 10/17/20 Time Patient Seen: 11:50 Pain Control Pain control: epidural Pelvic Exam Dilation (cm): 4 Effacement (%): 80 station: -1 Amniotic membrane status: Ruptured (thick meconium) Contractions Contraction frequency (min): 3 Contraction pattern: Regular Contraction intensity: Mild Status status: Category l Heart Rate Baseline: 135 Monitor Accelerations: Present Monitor Decelerations: Absent Monitor Variability: Moderate Comments: + scal stim, vertex well applied Assessment and Plan Assessment: induction ongoing Plan: continuous present management
[2020-10-17 12:13] LABS: COVID19 - ADMIT (NP swab/PCR) Negative (Negative)
[2020-10-17] MEDS: ONDANSETRON 4 MG/2 ML INJ IV (14:20)
--- NOTE | 2020-10-17 17:40 | PM.OBPRVD ---
Events: Labor Induction Labor & Delivery Delivery date: 10/17/20 Intrapartal Events: None Cervical ripening method: none Induction method: per pitocin protocol Delivery augmentation: rupture of membranes Delivery monitor: external FHT and external uterine Route of delivery: Episiotomy description: None L&D Laceration Description: None Delivery repair: chromic Estimated blood loss (mL): 150 Anesthesia Type: Epidural Complications: None Narrative: Patient complete and pushed for 27 minutes. At 3:22 p.m., a live female delivered in the VILMA presentation over an intact perineum. Tight nuchal cord x1 cut on the perineum. There was a compound presentation of the left hand up by the face. The remainder of the body delivered without difficulty and was placed on mom's abdomen. Cord bloods were obtained. Pitocin was given in the IV fluids at 220 cc/hour. The placenta delivered intact with a three-vessel cord at 3:26 p.m.. The fundus was massaged to firm. The area over a small cyst on the left labia was cleaned x3 with Betadine. There was a small cyst on the left labia which was excised with a # 15 Blade. The cyst was 1 cm in length. This was closed with 4 0 chromic with a simple interrupted suture. There was a thrombosed hemorrhoid at the 5 o'clock position around the rectum. The area was cleaned x3 with Betadine. The thrombosed hemorrhoid was incised with a # 15 Blade and a large amount of clot was extracted. Hemostasis was achieved. Estimated blood loss 150 cc. Apgars 8 at 1 minute and 9 at 5 minutes. . Epidural. Mom and infant stable to recovery. Baby 1: Infant gender: Female Presentation: vertex Position: Left Occiput Anterior Placenta delivery description: Spontaneous and Normal Configuration Cord Vessel Description: 3 Vessels, Nuchal Cord (X1), Tight and Clamped/Cut score (1 min): 8 score (5 min): 9 weight: 7 lb 14 oz Plan for aftercare: Routine care
[2020-10-17] MEDS: DERMOPLAST SPRAY 20% 60 ML 1 SPRAY TOP (18:07)
[2020-10-17] MEDS: LANOLIN OINT 7 GM 1 APPLIC TOP (18:07)
[2020-10-17] MEDS: IBUPROFEN 600 MG TABLET PO (19:48)
[2020-10-17] MEDS: DOCUSATE 100 MG CAPSULE PO (19:48)
[2020-10-18] MEDS: MAGNESIUM HYDROXIDE 30 ML UDC PO ×2 (01:34→10:28)
[2020-10-18] MEDS: IBUPROFEN 600 MG TABLET PO ×3 (01:34→14:16)
[2020-10-18 06:29] LABS: Hematocrit 38.2 % (36-46); Hemoglobin 13.1 g/dL (12.0-16.0)
[2020-10-18] MEDS: DOCUSATE 100 MG CAPSULE PO (08:03)
--- NOTE | 2020-10-18 11:31 | P.DS_ITS ---
Discharge Providers Provider Date of admission: 10/17/20 07:06 Discharge Date: 10/18/20 Consults: 10/18/20 15:39 Consult to Static Balancer Routine Comment: Discharge provider: Allison Espinoza MD Summary Hospital Course Date Patient Seen: 10/18/20 Time Patient Seen: 11:31 Diagnoses: 39+ 6 weeks gestation Induction of labor Artificial rupture of membranes Epidural analgesia Thrombosed hemorrhoid Labial cyst Spontaneous vaginal delivery I and D of thrombosed hemorrhoid Excision of labial cyst Hospital Course: Patient is a 25-year-old 4 para 3 who presented on 3 December 12, 2020 for s cheduled induction of labor. She was started on Pitocin. She received an epidural for pain management. Artificial rupture of membranes was performed. She had a spontaneous vaginal delivery without complication. She had a thrombosed hemorrhoid which was opened and drained at the time of delivery. She had a right labial cyst which was excised at the delivery. Her course was unremarkable except for hemorrhoids. She is discharged home on day # 1. Peripartum Data Delivery Method: Natural Vaginal Laceration Description: None Episiotomy description: None Procedures: Pitocin induction of labor Epidural analgesia Artificial rupture of membranes Spontaneous vaginal delivery Excision of right labial cyst Incision and drainage of thrombosed hemorrhoid complications: other (Hemorrhoids) [place] 1: Gender: Female Disposition of : home Status at Discharge Cognitive/behavioral status at discharge: oriented Functional status at discharge: independent ambulation Overall status at discharge: patient is progressing back to baseline Time Spent with Patient Time attestation: Total time spent providing and/or coordinating discharge services: Time spent: Less than 30 minutes Objective Labs Result Diagrams: 10/18/20 06:25 Labs: Laboratory Results - last 24 hr 10/17/20 10/18/20 10/18/20 11:18 06:25 06:25 Hgb 13.1 Hct 38.2 SARS-CoV-2 (PCR) Negative Maternal Bleed Negative Exam Vital Signs (past 8 hours): Generally: Patient is sitting up in bed, nursing , no acute distress Fundus: Firm at U -1 Extremities: 1+ edema, negative Homans Discharge Plan Discharge Plan Patient Disposition: Home Discharge orders & Medications Prescriptions: Continued prenat.vits,booker,[id number] Tablet 1 tab PO DAILY RF: 0 hydrocortisone 2.5 % cream with perineal applicator See Rx Instructions .ROUTE .COMPLEX Qty: 30 RF: 1 hydrocortisone acetate [Anusol-HC] 25 mg suppository 25 mg MI DAILY Qty: 12 RF: 0 Discontinued metoclopramide HCl [Reglan] 10 mg tablet 10 mg PO Q6H PRN (Reason: nausea and vomiting) Qty: 20 RF: 0 ondansetron 4 mg tablet,disintegrating 4 mg PO Q6H Qty: 20 RF: 2 pantoprazole 20 mg tablet,delayed release (DR/EC) See Rx Instructions .ROUTE .COMPLEX Qty: 90 RF: 3 nitrofurantoin monohyd/m-cryst [Macrobid] 100 mg capsule 100 mg PO BID Qty: 10 RF: 0 No Action (DME) Double Electric Breast Pump See Rx Instructions .Route .MEDSUPPLY Qty: 1 RF: 0 Follow up/Referrals: Allison Espinoza MD [Physician] - 6 Weeks ( check) Diet/Activity/Treatments Diet: Regular Activity: No intercourse Skin/Wound/Dressing Care Report to your healthcare provider any signs of infection, such as:: chills, fever, increased pain and unusual drainage Visit Report/Discharge Packet Instructions: DI for Labor and Delivery, Vaginal Stand Alone Forms: Discharge: Care
[2020-10-18 12:42] VITALS: BP 106/67; PULSE 70; RESP 17; TEMP 37.1
[2020-10-18] MEDS: RHO(D) IMMUNE GLOBULIN 1,500 UNIT SYRINGE 1500 UNIT IM (13:17)
== END 2020-10-18 15:57 | disposition home or self-care (01) | DRG 768 ==
PROVIDERS: Admitting Provider Obstetrics & Gynecology; Family Provider Physician Assistant; Referring Provider Obstetrics & Gynecology; Visit Provider Obstetrics & Gynecology
DX: O48.0 Post-term pregnancy (principal); Z37.0 Single live birth; N90.7 Vulvar cyst; K64.5 Perianal venous thrombosis; Z3A.39 39 weeks gestation of pregnancy; O77.0 Labor and delivery complicated by meconium in amniotic fluid; O32.6XX0 Maternal care for compound presentation, not applicable or unspecified; O69.81X0 Labor and delivery complicated by cord around neck, without compression, not applicable or unspecified; Z20.822 Contact with and (suspected) exposure to COVID-19
CPT/HCPCS: 01967; 36415; 56405; 59050; 59400; 85014; 85018; 85025; 85461; 86850; 86900; 86901; 87635; G0379; J2405; J2590; J2790

== ENCOUNTER → 2020-11-20 19:13 | Outpatient (CLI) | payer OTHER, SELFPAY ==
[2020-11-20 19:57] LABS: COVID19 -Nasal RAPID Negative (Negative)
== END ==
PROVIDERS: Family Provider Physician Assistant; Visit Provider Student in an Organized Health Care Education/Training Program
DX: J02.9 Acute pharyngitis, unspecified (principal); Z20.822 Contact with and (suspected) exposure to COVID-19
CPT/HCPCS: 87070; 87635

== ENCOUNTER → 2021-04-22 14:23 | Outpatient (CLI) | payer OTHER, SELFPAY ==
[2021-04-22 15:27] LABS: Influenza A - CEPHEID Flu A NEGATIVE (NEGATIVE); Influenza B - CEPHEID Flu B NEGATIVE (NEGATIVE)
[2021-04-22 15:30] LABS: COVID19 -Nasal RAPID Negative (Negative)
== END ==
PROVIDERS: Family Provider Physician Assistant; Visit Provider Physician Assistant
DX: R09.81 Nasal congestion (principal); R51.9 Headache, unspecified; R52 Pain, unspecified; R05 Cough
CPT/HCPCS: 87502; 87635

== ENCOUNTER → 2021-06-07 09:47 | Outpatient (CLI) | payer OTHER, SELFPAY ==
[2021-06-07 11:26] LABS: Add Manual Diff / Slide Review NO; Basophils Absolute Auto 0 /uL (0-100); Basophils Percent Auto 0.3 % (0-2); Eosinophils Absolute Auto 100 /uL (0-450); Hematocrit 41.7 % (36-46); Hemoglobin 13.8 g/dL (12.0-16.0); Lymphocytes Absolute Auto 1900 /uL (1100-4500); Lymphocytes Percent Auto 29.9 % (25-40); Mean Corpuscular HGB Conc 33.1 % (30-36); Mean Corpuscular Hemoglobin 29.4 PG (26-34); Mean Corpuscular Volume 88.9 fL (80-100); Monocytes Absolute Auto 400 /uL (0-900); Monocytes Percent Auto 6.6 % (3-14); Neutrophils Absolute Auto 3900 /uL (1500-7000); Neutrophils Percent Auto 61.2 % (50-75); Platelet Count 295 X10^3/uL (150-400); Red Blood Cell Count 4.69 X10^6/uL (4.0-5.2); Red Cell Distribution Width 12.9 % (11.6-14.8); White Blood Cell Count 6.4 X10^3/uL (4.5-11.0)
[2021-06-07 12:08] LABS: Vitamin D 25 Hydroxy (D3) 30.7 ng/mL (30.0-100.0)
[2021-06-07 12:23] LABS: Thyroid Stimulating Hormone < 0.015 uIU/mL (0.47-4.68)
[2021-06-07 12:24] LABS: Alanine Aminotransferase 18 IU/L (<35); Albumin 4.5 g/dL (3.5-5.0); Albumin Globulin Ratio 1.5 (1.0-2.8); Alkaline Phosphatase 73 U/L (38-126); Aspartate Aminotransferase 25 IU/L (14-36); BUN Creatinine Ratio 17.3 (6-22); Bilirubin Total 0.5 mg/dL (0.2-1.3); Blood Urea Nitrogen 13 mg/dL (7-17); Calcium 9.5 mg/dL (8.4-10.2); Carbon Dioxide 28 mmol/L (22-32); Chloride 103 mmol/L (98-107); Cholesterol 164 mg/dL (140-199); Estimated Glomerular Filt Rate > 60.0 mL/min (>60); Globulin 3.1 g/dL (1.7-4.1); Glucose 85 mg/dL (70-100); HDL Cholesterol 43 mg/dL (40-60); HEMOLYSIS 22 (0-50); LDL Cholesterol Calculated 108 mg/dL (<100); Potassium 4.3 mmol/L (3.4-5.1); Sodium 140 mmol/L (137-145); Total Protein 7.6 g/dL (6.3-8.2); Triglycerides 64 mg/dL (35-150)
[2021-06-07 13:10] LABS: Vitamin B12 592 pg/mL (239-931)
== END ==
PROVIDERS: Family Provider Physician Assistant; Referring Provider Physician Assistant; Visit Provider Physician Assistant
DX: R53.83 Other fatigue (principal); Z13.6 Encounter for screening for cardiovascular disorders; F32.9 Major depressive disorder, single episode, unspecified; E63.9 Nutritional deficiency, unspecified; E55.9 Vitamin D deficiency, unspecified
CPT/HCPCS: 36415; 80053; 80061; 82306; 82607; 84443; 85025

== ENCOUNTER → 2021-06-18 06:50 | Outpatient (CLI) | payer OTHER, SELFPAY ==
[2021-06-18 08:56] LABS: Free T3, Triiodothyronine Free 4.88 pg/mL (2.77-5.27); Free T4, Direct Thyroxine 1.38 ng/dL (0.78-2.19)
[2021-06-18 09:20] LABS: Thyroid Stimulating Hormone < 0.015 uIU/mL (0.47-4.68)
[2021-06-19 22:36] LABS: Anti Thyroglobulin Antibody <1.0 IU/mL (0.0-0.9); Thyroid Peroxidase Antibodies <8 IU/mL (0-34)
[2021-06-24 16:55] LABS: Thyroid Stimulating Immunoglob < 0.10 IU/L (0.00-0.55)
== END ==
PROVIDERS: Family Provider Physician Assistant; PCP Family Medicine; Referring Provider Physician Assistant; Visit Provider Physician Assistant
DX: R53.83 Other fatigue (principal); R79.89 Other specified abnormal findings of blood chemistry
CPT/HCPCS: 36415; 84439; 84443; 84445; 84481; 86376; 86800

== ENCOUNTER → 2021-07-03 07:06 | Outpatient (CLI) | payer OTHER, SELFPAY ==
--- NOTE | 2021-07-03 07:10 | DI.US.S_ITS ---
PROCEDURE: US THYROID INDICATIONS: LOW TSH TECHNIQUE: Real-time scanning was performed of the thyroid gland, with image documentation. COMPARISON: None. FINDINGS: Right: Thyroid lobe measures 5.6 x 1.2 x 1.8 cm, and is homogeneous in echotexture. Left: Thyroid lobe measures 4.8 x 0.9 x 1.5 cm, and is homogenous in echotexture. Hypoechoic oblong nodule adjacent to the posterior aspect of the mid left thyroid gland measuring 9 mm. Isthmus: 3.8 mm thick. IMPRESSION: 1. Normal appearance of the thyroid. 2. 9 mm hypoechoic nodule adjacent to the posterior aspect of the mid left thyroid gland which could represent a small parathyroid adenoma. Recommend clinical correlation with serum calcium levels and if indicated, nuclear medicine parathyroid imaging could be performed for further assessment. Dictated by: Karl SEGURA Interpreted: Marua Li MD on 07/03/2021 at 9:01 Transcribed by: EMORY on 07/03/2021 at 9:04 Approved by: Maura Li M.D. on 07/03/2021 at 15:41
== END ==
PROVIDERS: Family Provider Physician Assistant; PCP Family Medicine; Referring Provider Physician Assistant; Visit Provider Physician Assistant
DX: R79.89 Other specified abnormal findings of blood chemistry (principal); R53.83 Other fatigue
CPT/HCPCS: 76536

== ENCOUNTER → 2021-09-15 09:27 | Outpatient (CLI) | payer OTHER, SELFPAY ==
[2021-09-15 11:18] LABS: Thyroid Stimulating Hormone 3.93 uIU/mL (0.47-4.68)
== END ==
PROVIDERS: Family Provider Physician Assistant; PCP Family Medicine; Referring Provider Physician Assistant; Visit Provider Physician Assistant
DX: E05.90 Thyrotoxicosis, unspecified without thyrotoxic crisis or storm (principal); R79.89 Other specified abnormal findings of blood chemistry
CPT/HCPCS: 36415; 84443

== ENCOUNTER 2021-11-08 21:26 | Emergency (ER) | payer OTHER, SELFPAY ==
[2021-11-08 21:57] VITALS: BP 113/78; PULSE 68; RESP 17; TEMP 36.6; O2SAT 98; BMI 33.4
[2021-11-08 22:33] LABS: Bacteria Urine Few (2-10); RBC Urine 0-1/HPF (0-5/HPF); Squamous Epithelial Cell Urine 1-5 /HPF (0-5/HPF); WBC Urine 0-1/HPF (0-5/HPF)
[2021-11-08 22:54] LABS: Add Manual Diff / Slide Review NO; Basophils Absolute Auto 0 /uL (0-100); Basophils Percent Auto 0.4 % (0-2); Eosinophils Absolute Auto 200 /uL (0-450); Eosinophils Percent Auto 2.4 % (2-4); Hematocrit 39.9 % (36-46); Hemoglobin 13.4 g/dL (12.0-16.0); Lymphocytes Absolute Auto 3400 /uL (1100-4500); Mean Corpuscular HGB Conc 33.6 % (30-36); Mean Corpuscular Hemoglobin 29.7 PG (26-34); Mean Corpuscular Volume 88.3 fL (80-100); Monocytes Absolute Auto 600 /uL (0-900); Monocytes Percent Auto 7.2 % (3-14); Neutrophils Absolute Auto 4600 /uL (1500-7000); Platelet Count 288 X10^3/uL (150-400); Red Blood Cell Count 4.52 X10^6/uL (4.0-5.2); Red Cell Distribution Width 13.7 % (11.6-14.8); White Blood Cell Count 8.8 X10^3/uL (4.5-11.0)
[2021-11-08] MEDS: ONDANSETRON 4 MG/2 ML INJ IV (22:57)
[2021-11-08] MEDS: SODIUM CHLORIDE 0.9% 1,000 ML 1000 ML IV (22:57)
[2021-11-08 23:03] LABS: Lipase 88 U/L (23-300)
[2021-11-08 23:05] LABS: Alanine Aminotransferase 22 IU/L (<35); Albumin 4.7 g/dL (3.5-5.0); Albumin Globulin Ratio 1.4 (1.0-2.8); Alkaline Phosphatase 90 U/L (38-126); Aspartate Aminotransferase 32 IU/L (14-36); BUN Creatinine Ratio 30.9 (6-22); Bilirubin Total 0.4 mg/dL (0.2-1.3); Blood Urea Nitrogen 25 mg/dL (7-17); Calcium 9.3 mg/dL (8.4-10.2); Carbon Dioxide 24 mmol/L (22-32); Chloride 104 mmol/L (98-107); Estimated Glomerular Filt Rate > 60 mL/min (>60); Globulin 3.4 g/dL (1.7-4.1); Glucose 86 mg/dL (70-100); HEMOLYSIS < 15 (0-50); Potassium 3.8 mmol/L (3.4-5.1); Sodium 139 mmol/L (137-145); Total Protein 8.1 g/dL (6.3-8.2)
[2021-11-08 23:24] VITALS: BP 105/55; PULSE 72; RESP 16; O2SAT 98
[2021-11-08 23:30] VITALS: PULSE 58; O2SAT 98
--- NOTE | 2021-11-08 23:48 | ED_ITS ---
HPI - Female Genitourinary General Chief complaint: Urogenital-Female Stated complaint: ABD Pain X 4 days Time Seen by Provider: 11/08/21 21:37 Source: patient Mode of arrival: Ambulatory History of Present Illness HPI Narrative: 26-year-old female nonsmoker with noncontributory medical history presents with chief complaint of about 4 days of lower abdominal discomfort. She states that seems to be worse when she moves and improves with rest. She does have some back pain. She denies any fever or chills nor nausea or vomiting. She denies vaginal bleeding or any obvious discharge. She is very minimally sexually active. Her last. Was quite sometime ago, she delivered a child vaginally about 1 year ago and is currently . She denies dysuria, frequency or urgency but does state that when she attempts to urinate she feels like it is hard to go. Related Data Previous Rx's Medication Instructions Recorded methimazole 5 mg tablet 5 mg PO DAILY #90 tab 07/23/21 hydrocortisone acetate 25 mg 25 mg NE DAILY #12 ea 09/24/21 rectal suppository (Anusol-HC) sertraline 50 mg tablet See Rx Instructions .ROUTE 10/20/21 .COMPLEX #90 tab Allergies Allergy/AdvReac Type Severity Reaction Status Date / Time No Known Drug Allergies Allergy Verified 11/08/21 22:01 Review of Systems Review of Systems Narrative: GENERAL: Denies chills, fatigue, malaise, fever, sweats. HEENT: Denies sinus pain, ear pain, sore throat, difficulty swallowing, dizziness. RESPIRATORY: Denies dyspnea, cough, wheezing, hemoptysis, sputum. CARDIOVASCULAR: Denies chest pain, palpitations, orthopnea, edema, GASTROINTESTINAL: See HPI : See HPI MUSCULOSKELETAL: denies weakness, joint pain, or bony pain SKIN: Denies rash, skin lesions, or other NEUROLOGIC: Denies weakness, headache, numbness, change in speech, confusion, seizures, incoordination. PSYCHIATRIC: No concerning psychosocial issues. 12 point review of systems is negative except for those stated above Patient History Medical History Anemia Anxiety Asthma Constipation Depression Healthy adult Hemorrhoids during Mastitis, right, acute (04/17/18) Ovarian cyst PTSD (post-traumatic stress disorder) (spontaneous vaginal delivery) (~11/05/13) (spontaneous vaginal delivery) (~03/02/18) Trauma Type O blood, Rh negative UTI (urinary tract infection) Surgical History S/P wisdom tooth extraction Family History Mother Diabetes mellitus Sister Mental health disorder Disassociation disorder Grandfather Diabetes mellitus Blind Grandmother C. difficile diarrhea Dementia Diabetes mellitus Stroke Grandfather Family estrangement Myocardial infarction Grandmother Alcoholic Family estrangement Father Family estrangement No known health problems Hypertension alcohol intake frequency: other Last Alcoholic Drink: none Substance Use Type: does not use Exam Narrative Exam Narrative: GENERAL: [26] year old patient appears stated age. Well-developed patient, in mild distress. HEAD: Atraumatic. Normocephalic. EYES: Pupils equal round and reactive. Extraocular motions intact. No scleral icterus. No injection or drainage. ENT: Nose without bleeding, purulent drainage. Throat without erythema, tonsillar hypertrophy or exudate. Airway patent. NECK: Trachea midline. Non tender CARDIOVASCULAR: Regular rate and rhythm without murmurs, gallops, or rubs. RESPIRATORY: Clear to auscultation. Breath sounds equal bilaterally. No wheezes, rales, or rhonchi. GASTROINTESTINAL: Abdomen soft, mild suprapubic tenderness, nondistended. EXTREMITIES: No edema or joint tenderness. BACK: Nontender without deformity or crepitance. No flank tenderness. NEURO: AOx3. SKIN: No rash or erythema of visible areas Initial Vital Signs Initial Vital Signs: Vital Signs Temperature 97.9 F 11/08/21 21:57 Pulse Rate 68 11/08/21 21:57 Respiratory Rate 17 11/08/21 21:57 Blood Pressure 113/78 11/08/21 21:57 Pulse Oximetry 98 11/08/21 21:57 Course Orders Ordered: ED Orders 11/08/21 22:09 Urine Culture Stat Urine Microscopic Stat 11/08/21 22:40 Complete Blood Count AUTO DIFF Stat Comprehensive Metabolic Panel Stat Lipase Stat 11/08/21 23:55 US pelvic complete Stat 11/09/21 00:10 Genital Culture Stat Wet Prep Tric BV Vianey Stat 11/09/21 00:23 Chlamydia Gonorrhea PCR -URINE Stat Discontinued Medications Sodium Chloride (Normal Saline 0.9%) 1,000 mls @ 1,000 mls/hr IV BOLUS ONE Stop: 11/08/21 23:21 Last Infusion: 11/09/21 00:58 Dose: 0 mls/hr Documented by: Admin: 11/08/21 22:57 Dose: 1,000 mls/hr Documented by: JOSLYN Ondansetron HCl (Ondansetron 4 Mg Odt) 4 mg PO NOW ONE Stop: 11/08/21 22:23 Last Admin: 11/08/21 22:56 Dose: Not Given Documented by: JOSLYN Ondansetron HCl (Ondansetron 4 Mg/2 Ml Inj) 4 mg IV NOW ONE Stop: 11/08/21 22:52 Last Admin: 11/08/21 22:57 Dose: 4 mg Documented by: JOSLYN Consultations Consultation #1: discussed with Dr. Ornelas, recommends waiting on cultures rather than any decisions based on preliminary result of G+ rods with return precautions and close follow up Vital Signs Vital signs: Vital Signs - 8 hr 11/08/21 21:57 11/08/21 23:24 Temperature 97.9 F Pulse Rate 68 72 Respiratory Rate 17 16 Blood Pressure 113/78 105/55 L Pulse Oximetry 98 98 MDM - Female Genitourinary Lab Data Result diagrams: 11/08/21 22:40 11/08/21 22:40 Labs: Lab Results 11/08/21 11/08/21 11/08/21 Range/Units 22:09 22:09 22:40 WBC 8.8 (4.5-11.0) X10^3/uL RBC 4.52 (4.0-5.2) X10^6/uL Hgb 13.4 (12.0-16.0) g/dL Hct 39.9 (36-46) % MCV 88.3 (80-100) fL MCH 29.7 (26-34) PG MCHC 33.6 (30-36) % RDW 13.7 (11.6-14.8) % Plt Count 288 (150-400) X10^3/uL Neut % (Auto) 52.0 (50-75) % Lymph % (Auto) 38.0 (25-40) % Noble % (Auto) 7.2 (3-14) % Eos % (Auto) 2.4 (2-4) % Baso % (Auto) 0.4 (0-2) % Neut # (Auto) 4600 (2741-7328) /uL Lymph # (Auto) 3400 (1456-1342) /uL Noble # (Auto) 600 (0-900) /uL Eos # (Auto) 200 (0-450) /uL Baso # (Auto) 0 (0-100) /uL Sodium (137-145) mmol/L Potassium (3.4-5.1) mmol/L Chloride (98-107) mmol/L Carbon Dioxide (22-32) mmol/L BUN (7-17) mg/dL Creatinine (0.52-1.04) mg/dL Estimated GFR (>60) mL/min BUN/Creatinine Ratio (6-22) Glucose (70-100) mg/dL Calcium (8.4-10.2) mg/dL Total Bilirubin (0.2-1.3) mg/dL AST (14-36) IU/L ALT (<35) IU/L Alkaline Phosphatase (38-126) U/L Total Protein (6.3-8.2) g/dL Albumin (3.5-5.0) g/dL Globulin (1.7-4.1) g/dL Albumin/Globulin Ratio (1.0-2.8) Lipase (23-300) U/L Urine RBC 0-1/hpf (0-5/HPF) Urine WBC 0-1/hpf (0-5/HPF) Ur Squamous Epith Cells 1-5 /hpf (0-5/HPF) Urine Bacteria Few (2-10) H (None) Ur Culture Indicated? Culture not indicate Ur Chlamydia DNA (PCR) Not detected N gonorrhoeae DNA (PCR) Not detected 11/08/21 11/08/21 Range/Units 22:40 22:40 WBC (4.5-11.0) X10^3/uL RBC (4.0-5.2) X10^6/uL Hgb (12.0-16.0) g/dL Hct (36-46) % MCV (80-100) fL MCH (26-34) PG MCHC (30-36) % RDW (11.6-14.8) % Plt Count (150-400) X10^3/uL Neut % (Auto) (50-75) % Lymph % (Auto) (25-40) % Noble % (Auto) (3-14) % Eos % (Auto) (2-4) % Baso % (Auto) (0-2) % Neut # (Auto) (2954-2592) /uL Lymph # (Auto) (3600-7776) /uL Noble # (Auto) (0-900) /uL Eos # (Auto) (0-450) /uL Baso # (Auto) (0-100) /uL Sodium 139 (137-145) mmol/L Potassium 3.8 (3.4-5.1) mmol/L Chloride 104 (98-107) mmol/L Carbon Dioxide 24 (22-32) mmol/L BUN 25 H (7-17) mg/dL Creatinine 0.81 (0.52-1.04) mg/dL Estimated GFR > 60 (>60) mL/min BUN/Creatinine Ratio 30.9 H (6-22) Glucose 86 (70-100) mg/dL Calcium 9.3 (8.4-10.2) mg/dL Total Bilirubin 0.4 (0.2-1.3) mg/dL AST 32 (14-36) IU/L ALT 22 (<35) IU/L Alkaline Phosphatase 90 (38-126) U/L Total Protein 8.1 (6.3-8.2) g/dL Albumin 4.7 (3.5-5.0) g/dL Globulin 3.4 (1.7-4.1) g/dL Albumin/Globulin Ratio 1.4 (1.0-2.8) Lipase 88 (23-300) U/L Urine RBC (0-5/HPF) Urine WBC (0-5/HPF) Ur Squamous Epith Cells (0-5/HPF) Urine Bacteria (None) Ur Culture Indicated? 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 Procedure: US pelvic complete Ordering Provider: Rey Hubbard D.O. PROCEDURE:? US PELVIC COMPLETE ? INDICATIONS:? PAIN ? TECHNIQUE:? Real-time scanning was performed of the pelvic organs, with image documentation.? Additional endovaginal scanning was necessary due to incomplete visualization of the adnexal and endometrial structures by transabdominal scanning.? ? COMPARISON:? None. ? FINDINGS:? ?? Uterus:? Uterus is anteverted and normal in size at 8.6 x 4.4 x 7.0 cm. The myometrium is homogeneous. ? The endometrium measures 11.7 mm combined thickness.? ? Ovaries:? Right left ovaries measure 3.1 x 1.8 x 2.3 cm in 3.1 x 1.7 x 2.4 cm respectively.? Both ovaries have appropriate echotexture ? Other:? No pathologic free abdominal or pelvic fluid. ? ? IMPRESSION:? Unremarkable pelvic ultrasound ? Approved by: Rito Porter M.D. on 11/09/2021 at 0:24? [facility] Narrative Medical decision making narrative: Patient has reassuring history and physical exam. She shows no signs of sepsis, pain is well controlled and she is tolerating orals. Ultrasound is unremarkable as is blood work. We did discuss the potential of CT scan but both feel that this is not indicated right now based on the severity of her symptoms. She has had very minor vaginal discharge and pelvic swabs are not yet back. We will hold off any specific treatment modality, particularly given her reassuring presentation as well as the fact that she is actively breast- feeding, she is given extensive return precautions and questions have been answered to her apparent satisfaction Discharge Plan Departure Patient Disposition: Home Clinical Impression: Abdominal pain Instructions: DI for Abdominal Pain-Adult Activity Restrictions/Additional Instructions: *You have been diagnosed with [abdominal pain. As we discussed your history and physical exam as well as labs and ultrasound are very reassuring. He have no signs of sepsis and after discussion with on-call gynecology we sure the opinion that it is most appropriate to wait for the results of your cultures before making further decisions and how to treat *What to do: *Please continue to take your regular medications as directed. [ ] New medication prescriptions sent to your pharmacy: [ ] [ ] New medication written as a paper prescription [ x] No new medications given *Please follow up with your primary care provider in 2-3 days, call for an appointment. Let them know you were seen in the Emergency Department and that we ask that you be seen in follow up. We will electronically transmit a record of today's note if your PCP is in our system *If you do not have a primary care provider please contact the [facility] Resource line at [phone]. They will ask some questions about your medical history and help get you set up with a doctor in the community. *Return to Emergency Department if you should have any new, worsening or concerning symptoms, such as [fever greater than 101 F, shaking chills, worsening pain, persistent vomiting or other bothersome symptoms] Prescriptions: No Action methimazole 5 mg tablet 5 mg PO DAILY Qty: 90 1RF hydrocortisone acetate [Anusol-HC] 25 mg suppository 25 mg NE DAILY Qty: 12 0RF sertraline 50 mg tablet See Rx Instructions .ROUTE .COMPLEX Qty: 90 1RF Dose Instruction: TAKE 1 TABLET(50 MG) BY MOUTH DAILY Rx Instructions: TAKE 1 TABLET(50 MG) BY MOUTH DAILY Referrals: Carlos Gonzales MD [Primary Care Provider] -
--- NOTE | 2021-11-08 23:55 | DI.US.S_ITS ---
PROCEDURE: US PELVIC COMPLETE INDICATIONS: PAIN TECHNIQUE: Real-time scanning was performed of the pelvic organs, with image documentation. Additional endovaginal scanning was necessary due to incomplete visualization of the adnexal and endometrial structures by transabdominal scanning. COMPARISON: None. FINDINGS: Uterus: Uterus is anteverted and normal in size at 8.6 x 4.4 x 7.0 cm. The myometrium is homogeneous. The endometrium measures 11.7 mm combined thickness. Ovaries: Right left ovaries measure 3.1 x 1.8 x 2.3 cm in 3.1 x 1.7 x 2.4 cm respectively. Both ovaries have appropriate echotexture Other: No pathologic free abdominal or pelvic fluid. IMPRESSION: Unremarkable pelvic ultrasound Approved by: Rito Porter M.D. on 11/09/2021 at 0:24
[2021-11-09 02:03] LABS: Urine N gonorrhoeae NOT DETECTED
[2021-11-09 02:04] LABS: Urine Chlamydia NOT DETECTED
[2021-11-09 02:45] VITALS: BP 122/61; PULSE 59; O2SAT 95
== END 2021-11-09 02:53 | disposition home or self-care (01) ==
PROVIDERS: Emergency Provider Emergency Medicine; Family Provider Physician Assistant; PCP Family Medicine
DX: R10.30 Lower abdominal pain, unspecified (principal)
CPT/HCPCS: 36415; 76830; 76856; 80053; 81003; 81015; 81025; 83690; 85025; 87070; 87086; 87205; 87210; 87252; 87491; 87591; 96361; 96374; 99284; J2405

== ENCOUNTER → 2022-01-23 09:57 | Outpatient (CLI) | payer OTHER, SELFPAY ==
--- NOTE | 2022-01-23 09:59 | DI.US.S_ITS ---
PROCEDURE: US THYROID INDICATIONS: 6 month followup thyroid nodule TECHNIQUE: Real-time scanning was performed of the thyroid gland, with image documentation. COMPARISON: [facility], US, US THYROID, 07/03/2021, 7:26. FINDINGS: Right: Thyroid lobe measures 5.2 x 1.2 x 1.6 cm, and is homogeneous in echotexture. Left: Thyroid lobe measures 4.8 x 1.0 x 1.4 cm, and is homogenous in echotexture. Isthmus: 5 mm thick. A hypoechoic nodule measuring 8.7 x 4.6 x 7.5 mm is unchanged compared to the prior ultrasound on 07/03/2021. A hypoechoic nodule measuring 8.1 x 6.6 by 4.9 mm is also unchanged/slightly smaller compared to the prior ultrasound on 07/03/2021. . IMPRESSION: 1. Normal appearance of the thyroid with no thyroid nodules. 2. Hypoechoic areas/possible nodules described on the prior ultrasound on 07/03/2021 are unchanged. Given the lack of interval change, normal lymph nodes or ectopic thyroid tissue are favored, however recommend observation and repeat ultrasound if any change. Ultrasound could also be repeated in 6 months to ensure 1 year stability. Dictated by: Rafael Cha M.D. on 01/23/2022 at 11:39 Approved by: Rafael Cha M.D. on 01/23/2022 at 11:49
== END ==
PROVIDERS: Family Provider Physician Assistant; PCP Family Medicine; Referring Provider Family Medicine; Visit Provider Family Medicine
DX: E04.1 Nontoxic single thyroid nodule (principal); R79.89 Other specified abnormal findings of blood chemistry; E05.90 Thyrotoxicosis, unspecified without thyrotoxic crisis or storm
CPT/HCPCS: 76536

== ENCOUNTER → 2022-06-21 09:10 | Outpatient (CLI) | payer OTHER, SELFPAY | PROVIDERS: Family Provider Physician Assistant; PCP Family Medicine; Visit Provider Physician Assistant | DX: J02.9 Acute pharyngitis, unspecified (principal) | CPT/HCPCS: 87070 ==

== ENCOUNTER → 2022-08-13 10:20 | Outpatient (CLI) | payer OTHER, SELFPAY ==
[2022-08-17 14:22] LABS: QuantiFERON Mitogen Value >10.00 IU/mL (.); QuantiFERON Nil Value 0.08 IU/mL (.); QuantiFERON TB Gold Plus Negative (Negative); QuantiFERON TB1 Ag Value 0.06 IU/mL (.); QuantiFERON TB2 Ag Value 0.07 IU/mL (.)
== END ==
PROVIDERS: Family Provider Physician Assistant; PCP Family Medicine; Referring Provider Family Medicine; Visit Provider Family Medicine
DX: Z11.1 Encounter for screening for respiratory tuberculosis (principal)
CPT/HCPCS: 86480

== ENCOUNTER → 2022-08-20 16:23 | Outpatient (CLI) | payer OTHER, SELFPAY ==
[2022-08-20 18:05] LABS: Add Manual Diff / Slide Review NO; Basophils Absolute Auto 0 /uL (0-100); Basophils Percent Auto 0.3 % (0-2); Eosinophils Absolute Auto 300 /uL (0-450); Eosinophils Percent Auto 3.2 % (2-4); Hematocrit 39.5 % (36-46); Hemoglobin 13.4 g/dL (12.0-16.0); Lymphocytes Absolute Auto 2600 /uL (1100-4500); Lymphocytes Percent Auto 30.8 % (25-40); Mean Corpuscular HGB Conc 33.8 % (30-36); Mean Corpuscular Hemoglobin 29.8 PG (26-34); Mean Corpuscular Volume 88.1 fL (80-100); Monocytes Absolute Auto 500 /uL (0-900); Monocytes Percent Auto 6.4 % (3-14); Neutrophils Absolute Auto 5000 /uL (1500-7000); Neutrophils Percent Auto 59.3 % (50-75); Platelet Count 298 X10^3/uL (150-400); Red Blood Cell Count 4.48 X10^6/uL (4.0-5.2); Red Cell Distribution Width 13.2 % (11.6-14.8); White Blood Cell Count 8.4 X10^3/uL (4.5-11.0)
[2022-08-20 18:20] LABS: Alanine Aminotransferase 20 IU/L (<35); Albumin 4.4 g/dL (3.5-5.0); Albumin Globulin Ratio 1.2 (1.0-2.8); Alkaline Phosphatase 76 U/L (38-126); Aspartate Aminotransferase 23 IU/L (14-36); Bilirubin Total 0.3 mg/dL (0.2-1.3); Blood Urea Nitrogen 16 mg/dL (7-17); Calcium 9.2 mg/dL (8.4-10.2); Carbon Dioxide 26 mmol/L (22-32); Chloride 104 mmol/L (98-107); Estimated Glomerular Filt Rate > 60 mL/min (>60); Globulin 3.6 g/dL (1.7-4.1); Glucose 85 mg/dL (70-100); HEMOLYSIS < 15 (0-50); Potassium 3.9 mmol/L (3.4-5.1); Sodium 140 mmol/L (137-145)
[2022-08-20 18:51] LABS: TSH w/ Reflex to FT4 3.35 uIU/mL (0.47-4.68)
== END ==
PROVIDERS: Family Provider Physician Assistant; PCP Family Medicine; Referring Provider Physician Assistant; Visit Provider Physician Assistant
DX: F41.9 Anxiety disorder, unspecified (principal); R00.2 Palpitations; R53.83 Other fatigue; R79.89 Other specified abnormal findings of blood chemistry; E05.90 Thyrotoxicosis, unspecified without thyrotoxic crisis or storm
CPT/HCPCS: 36415; 80053; 84443; 85025

== ENCOUNTER → 2022-09-14 15:08 | Outpatient (CLI) | payer OTHER, SELFPAY ==
--- NOTE | 2022-09-14 15:09 | DI.US.S_ITS ---
PROCEDURE: US PELVIC COMPLETE INDICATIONS: HEAVY MENSTRAUTION AND DYSMENORRHEA TECHNIQUE: Real-time scanning was performed of the pelvic organs, with image documentation. Additional endovaginal scanning was necessary due to incomplete visualization of the adnexal and endometrial structures by transabdominal scanning. COMPARISON: [facility], US, US PELVIC COMPLETE, 11/09/2021, 1:39. FINDINGS: Uterus: The uterus is retroverted measuring 7.5 x 5.4 x 4.2 cm. Endometrium measures 4 mm. Echotexture is overall homogeneous. Suspected nabothian cysts are present. Ovaries: Normal size ovaries bilaterally measuring 6 cc bilaterally. Other: No pathologic free fluid. IMPRESSION: No acute pelvic abnormality on ultrasound. We strive to produce accurate, complete, and clear reports of imaging services. To assist us in improving patient care, this report was composed using standard report templates and voice recognition software. Therefore, it may contain abnormal punctuation, insertions and/or omissions. Occasional wrong-word or sound-alike substitutions may occur. Though we review the report and make efforts to correct it, we do recommend that the report be read carefully in proper context to recognize any text inaccuracies. Dictated by: Manny Anderson M.D. on 09/14/2022 at 16:13 Approved by: Manny Anderson M.D. on 09/14/2022 at 16:14
--- NOTE | 2022-09-14 15:09 | DI.US.S_ITS ---
PROCEDURE: US THYROID INDICATIONS: 6 MONTH FOLLOW UP NODULES. LOW THYROID STIMULATING HORMONE. TECHNIQUE: Real-time scanning was performed of the thyroid gland, with image documentation. COMPARISON: [facility], US, US THYROID, 01/23/2022, 10:08. FINDINGS: Right thyroid measures 5.4 x 2.0 x 1.4 cm. Left thyroid measures 4.7 x 1.6 x 1.0 cm. The isthmus measures 4 mm. Nodules adjacent to the thyroid, on the right measuring 10 x 7 x 6 mm previously 8 x 7 x 5 mm. On the left measuring 10 x 5 x 5 mm, previously 9 x 8 x 5 mm. IMPRESSION: Nodules adjacent to the thyroid again seen, grossly stable. Measurement differences on the right-sided nodule may be due to technique, attention on follow-up. Please also correlate with laboratory testing and possible nuclear medicine parathyroid scan to assess functional status of any parathyroid tissue. Dictated by: Manny Anderson M.D. on 09/14/2022 at 16:14 Approved by: Manny Anderson M.D. on 09/14/2022 at 16:17
== END ==
PROVIDERS: Family Provider Physician Assistant; PCP Family Medicine; Referring Provider Physician Assistant; Visit Provider Physician Assistant
DX: E05.90 Thyrotoxicosis, unspecified without thyrotoxic crisis or storm (principal); E04.2 Nontoxic multinodular goiter; N94.6 Dysmenorrhea, unspecified; R79.89 Other specified abnormal findings of blood chemistry
CPT/HCPCS: 76536; 76830; 76856

== ENCOUNTER → 2023-01-24 15:05 | Outpatient (CLI) | payer OTHER, SELFPAY ==
--- NOTE | 2023-01-24 15:06 | DI.RAD.S_ITS ---
PROCEDURE: XR CHEST 2V INDICATIONS: Cough TECHNIQUE: 2 views of the chest were acquired. COMPARISON: [facility], CR, XR CHEST 2V, 10/25/2019, 22:10. [facility], CR, XR CHEST 1V, 04/17/2018, 19:46. FINDINGS: Surgical changes and devices: None. Lungs and pleura: Lungs are clear. No pleural effusions or pneumothorax. Mediastinum: Mediastinal contours are normal. Heart size is normal. Bones and chest wall: No suspicious bony abnormalities. Soft tissues appear unremarkable. IMPRESSION: No acute cardiopulmonary process. Dictated by: Prabhjot Figueroa M.D. on 01/24/2023 at 18:25 Approved by: Prabhjot Figueroa M.D. on 01/24/2023 at 18:26
== END ==
PROVIDERS: Family Provider Physician Assistant; PCP Family Medicine; Referring Provider Nurse Practitioner Family; Visit Provider Nurse Practitioner Family
DX: R05.9 Cough, unspecified (principal)
CPT/HCPCS: 71046

== ENCOUNTER → 2023-04-19 11:06 | Outpatient (CLI) | payer OTHER, SELFPAY ==
--- NOTE | 2023-04-19 11:07 | DI.US.S_ITS ---
PROCEDURE: US THYROID INDICATIONS: LOW TSH - 6 MONTH FOLLOW UP TECHNIQUE: Real-time scanning was performed of the thyroid gland, with image documentation. COMPARISON: [facility], US, US THYROID, 09/14/2022, 15:20. FINDINGS: Right: Thyroid lobe measures 5.3 x 1.3 x 2.0 cm, and is homogeneous in echotexture. Left: Thyroid lobe measures 4.9 x 1.2 x 1.7 cm, and is homogenous in echotexture. Isthmus: 4 mm thick. Adjacent to the thyroid gland bilaterally are small nodules. On the right this measures 1.1 x 0.9 x 0.9, previously 1.0 x 0.7 x 0.6 cm. On the left this measures 1.2 x 0.6 x 0.9 cm, previously 1.0 x 0.5 x 0.5 cm. IMPRESSION: Again seen are nodules adjacent to the thyroid gland as described above, which appear mildly increased in size compared to prior. Recommend correlation with laboratory tests to exclude functional parathyroid tissue and if clinically indicated, nuclear medicine parathyroid scan could be obtained. Attention on follow-up. Dictated by: Randy South M.D. on 04/19/2023 at 12:59 Approved by: Randy South M.D. on 04/19/2023 at 13:03
== END ==
PROVIDERS: Family Provider Physician Assistant; PCP Family Medicine; Referring Provider Physician Assistant; Visit Provider Physician Assistant
DX: E05.90 Thyrotoxicosis, unspecified without thyrotoxic crisis or storm (principal); E04.2 Nontoxic multinodular goiter; R79.89 Other specified abnormal findings of blood chemistry
CPT/HCPCS: 76536

== ENCOUNTER → 2023-05-28 16:51 | Outpatient (CLI) | payer OTHER, SELFPAY ==
[2023-05-29 15:10] LABS: Ionized Calcium 4.8 mg/dL (4.5-5.6)
[2023-06-01 00:08] LABS: QuantiFERON Mitogen Value >10.00 IU/mL (.); QuantiFERON TB Gold Plus Negative (Negative); QuantiFERON TB2 Ag Value 0.01 IU/mL (.)
[2023-06-01 14:13] LABS: Parathyroid Hormone, Intact 37 pg/mL (15-65)
== END ==
PROVIDERS: Family Provider Physician Assistant; PCP Family Medicine; Referring Provider Physician Assistant; Visit Provider Physician Assistant
DX: Z02.0 Encounter for examination for admission to educational institution (principal); R93.89 Abnormal findings on diagnostic imaging of other specified body structures
CPT/HCPCS: 36415; 82310; 82330; 83970; 86480

== ENCOUNTER → 2023-12-06 15:59 | Outpatient (CLI) | payer OTHER, SELFPAY ==
[2023-12-11 15:40] LABS: QuantiFERON Mitogen Value >10.00 IU/mL (.); QuantiFERON Nil Value 0.03 IU/mL (.); QuantiFERON TB Gold Plus Negative (Negative); QuantiFERON TB1 Ag Value 0.04 IU/mL (.); QuantiFERON TB2 Ag Value 0.04 IU/mL (.)
== END ==
PROVIDERS: Family Provider Physician Assistant; PCP Family Medicine; Referring Provider Physician Assistant; Visit Provider Physician Assistant
DX: Z02.1 Encounter for pre-employment examination (principal)
CPT/HCPCS: 36415; 86480

== ENCOUNTER → 2024-04-21 13:28 | Outpatient (CLI) | payer OTHER, SELFPAY ==
[2024-04-21 14:59] LABS: Add Manual Diff / Slide Review NO; Basophils Absolute Auto 0 /uL (0-100); Basophils Percent Auto 0.3 % (0-2); Eosinophils Absolute Auto 100 /uL (0-450); Eosinophils Percent Auto 1.5 % (2-4); Hematocrit 39.2 % (36-46); Hemoglobin 13.4 g/dL (12.0-16.0); Lymphocytes Absolute Auto 2200 /uL (1100-4500); Lymphocytes Percent Auto 27.6 % (25-40); Mean Corpuscular HGB Conc 34.1 % (30-36); Mean Corpuscular Hemoglobin 30.8 PG (26-34); Mean Corpuscular Volume 90.3 fL (80-100); Monocytes Absolute Auto 400 /uL (0-900); Monocytes Percent Auto 5.3 % (3-14); Neutrophils Absolute Auto 5100 /uL (1500-7000); Neutrophils Percent Auto 65.3 % (50-75); Platelet Count 309 X10^3/uL (150-400); Red Blood Cell Count 4.34 X10^6/uL (4.0-5.2); Red Cell Distribution Width 13.6 % (11.6-14.8); White Blood Cell Count 7.8 X10^3/uL (4.5-11.0)
[2024-04-21 15:15] LABS: Alanine Aminotransferase 11 IU/L (<35); Albumin 4.3 g/dL (3.5-5.0); Albumin Globulin Ratio 1.7 (1.0-2.8); Alkaline Phosphatase 65 U/L (38-126); Aspartate Aminotransferase 20 IU/L (14-36); BUN Creatinine Ratio 17.2 (6-22); Bilirubin Total 0.5 mg/dL (0.2-1.3); Blood Urea Nitrogen 17 mg/dL (7-17); Calcium 9.5 mg/dL (8.4-10.2); Carbon Dioxide 21 mmol/L (22-32); Chloride 105 mmol/L (98-107); Estimated Glomerular Filt Rate > 60 mL/min (>60); Globulin 2.6 g/dL (1.7-4.1); Glucose 104 mg/dL (70-100); HEMOLYSIS < 15 (0-50); Potassium 4.2 mmol/L (3.4-5.1); Sodium 137 mmol/L (137-145); Total Protein 6.9 g/dL (6.3-8.2)
[2024-04-21 15:32] LABS: Free T3, Triiodothyronine Free 4.21 pg/mL (2.77-5.27)
== END ==
PROVIDERS: Family Provider Physician Assistant; PCP Family Medicine; Referring Provider Internal Medicine Endocrinology, Diabetes & Metabolism; Visit Provider Internal Medicine Endocrinology, Diabetes & Metabolism
DX: E05.90 Thyrotoxicosis, unspecified without thyrotoxic crisis or storm (principal)
CPT/HCPCS: 36415; 80053; 84443; 84481; 85025

== ENCOUNTER → 2024-09-01 16:31 | Outpatient (CLI) | payer OTHER, SELFPAY ==
--- NOTE | 2024-09-01 16:34 | DI.RAD.S_ITS ---
PROCEDURE: XR SHOULDER LT MIN 2V INDICATIONS: r/o fracture TECHNIQUE: 3 views of the shoulder were acquired. COMPARISON: None. FINDINGS: Bones: There may be slight superior positioning of the distal clavicle in relation to the acromion. Otherwise, no dislocation. No displaced fracture. Soft tissues: No suspicious calcifications. IMPRESSION: Possible slight superior positioning the distal clavicle compared to the acromion, correlate with any AC injury symptoms. No acute dislocation or displaced fracture otherwise. If there is high concern for occult injury, consider repeat radiography or cross-sectional imaging. Dictated by: Manny Anderson M.D. on 09/02/2024 at 13:49 Approved by: Manny Anderson M.D. on 09/02/2024 at 13:50
--- NOTE | 2024-09-01 16:34 | DI.RAD.S_ITS ---
PROCEDURE: XR ELBOW LT 2V INDICATIONS: r/o fracture in mid shaft upper arm TECHNIQUE: 3 views of the elbow were acquired. COMPARISON: None. FINDINGS: Bones: No acute displaced fractures identified at the elbow region. No dislocation. Soft tissues: No suspicious calcifications. No significant effusion. IMPRESSION: No acute radiographic abnormality in the elbow. If there is high concern for occult injury, consider repeat radiography or cross-sectional imaging. Dictated by: Manny Anderson M.D. on 09/02/2024 at 13:49 Approved by: Manny Anderson M.D. on 09/02/2024 at 13:49
== END ==
LOC: RAD 16:33
PROVIDERS: Family Provider Physician Assistant; PCP Family Medicine; Referring Provider Family Medicine; Visit Provider Family Medicine
DX: S49.92XA Unspecified injury of left shoulder and upper arm, initial encounter (principal); X58.XXXA Exposure to other specified factors, initial encounter
CPT/HCPCS: 73030; 73070

== ENCOUNTER → 2024-12-08 16:46 | Outpatient (CLI) | payer OTHER, SELFPAY ==
--- NOTE | 2024-12-08 16:48 | DI.US.S_ITS ---
PROCEDURE: US PELVIC COMPLETE INDICATIONS: IUD location TECHNIQUE: Real-time scanning was performed of the pelvic organs, with image documentation. Additional endovaginal scanning was necessary due to incomplete visualization of the adnexal and endometrial structures by transabdominal scanning. COMPARISON: [facility], US, US PELVIC COMPLETE, 09/14/2022, 15:30. FINDINGS: Uterus: Uterus is retroverted and normal in size at 7.8 x 5.7 x 4.3 cm. The myometrium is homogeneous. The endometrium measures 3 mm combined thickness. IUD in good position in the uterine body. Ovaries: The right ovary measures 2.9 x 2.1 x 2.4 cm, with a calculated ovarian volume of 7.6 cc. The left ovary measures 3.2 x 1.9 x 1.6 cm, with a calculated ovarian volume of 5.1 cc. The ovaries have a normal sonographic appearance. Less than 12 follicles can be seen in each ovary. No adnexal masses are seen. Other: No pathologic free abdominal or pelvic fluid. IMPRESSION: 1. Good position of the IUD in the uterine body. 2. No adnexal mass seen. We strive to produce accurate, complete, and clear reports of imaging services. To assist us in improving patient care, this report was composed using standard report templates and voice recognition software. Therefore, it may contain abnormal punctuation, insertions and/or omissions. Occasional wrong-word or sound-alike substitutions may occur. Though we review the report and make efforts to correct it, we do recommend that the report be read carefully in proper context to recognize any text inaccuracies. Dictated by: Jaspreet Paul M.D. on 12/10/2024 at 15:27 Approved by: Jaspreet Paul M.D. on 12/10/2024 at 15:29
== END ==
PROVIDERS: Family Provider Physician Assistant; PCP Family Medicine; Referring Provider Nurse Practitioner Obstetrics & Gynecology; Visit Provider Nurse Practitioner Obstetrics & Gynecology
DX: Z30.431 Encounter for routine checking of intrauterine contraceptive device (principal)
CPT/HCPCS: 76830; 76856

== ENCOUNTER → 2024-12-28 13:12 | Outpatient (ROUT) | payer OTHER, SELFPAY ==
[2025-01-01 18:07] LABS: HSV 1 DNA Positive (Negative); HSV 2 DNA Negative (Negative)
== END ==
LOC: LAB 13:13
PROVIDERS: Family Provider Physician Assistant; PCP Family Medicine; Visit Provider Nurse Practitioner Obstetrics & Gynecology
DX: Z11.3 Encounter for screening for infections with a predominantly sexual mode of transmission (principal); K13.70 Unspecified lesions of oral mucosa
CPT/HCPCS: 87070; 87147; 87529

== ENCOUNTER → 2025-01-24 14:39 | Outpatient (CLI) | payer OTHER, SELFPAY ==
--- NOTE | 2025-01-24 | DI.RAD.S_ITS ---
PROCEDURE: FL ARTHROGRAM SHOULDER LT INDICATIONS: labral tear and pathology COMPARISON: [facility], CR, XR SHOULDER LT MIN 2V, 09/01/2024, 16:54. [facility], MR, MR SHOULDER LT W CON, 01/24/2025, 14:48. TECHNIQUE: The indications, alternatives, benefits, risks, and complications of the procedure were explained to the patient. Written informed consent was obtained and placed in the chart. The shoulder was examined fluoroscopically and a site for needle placement chosen for entry into the glenohumeral joint from an anterior approach. The skin was prepped and draped in a sterile fashion, and 1% lidocaine infiltrated from skin down to joint capsule. A spinal needle was inserted into the glenohumeral joint, and a small amount of iodinated contrast media injected to confirm intra-articular placement of the needle tip. This was followed by approximately 12 mL dilute solution of a gadolinium containing MR contrast agent. The needle was removed and a dressing was applied. The patient was given postprocedural instructions and sent to the MR suite for MR imaging. FINDINGS: A single fluoroscopic spot image demonstrates intra-articular location of injected iodinated contrast. IMPRESSION: Successful fluoroscopically guided administration of dilute Gadolinium solution into the shoulder joint for MR arthrogram. Dictated by: Ronni Sanderson M.D. on 01/24/2025 at 17:35 Approved by: Ronni Sanderson M.D. on 01/24/2025 at 17:36
--- NOTE | 2025-01-24 14:41 | DI.MRI.S_ITS ---
PROCEDURE: MR SHOULDER LT W CON INDICATIONS: left shoulder impingement and instability TECHNIQUE: After the administration of 12 mL of dilute intra-articular Gadolinium contrast, oblique coronal T1 and T2 spin echo with fat saturation, oblique sagittal T1 spin echo with and without fat saturation, oblique sagittal T2 fast spin echo with fat saturation, axial T1 spin echo with fat saturation through the shoulder. COMPARISON: [facility], CR, XR SHOULDER LT MIN 2V, 09/01/2024, 16:54. FINDINGS: Image quality: Excellent. Rotator cuff: Mild tendinosis of the supraspinatus. There is low-grade articular sided tear at the anterior footprint of the supraspinatus (07:10). The infraspinatus is unremarkable. The teres minor is unremarkable. The subscapularis is unremarkable. No muscle edema or fatty atrophy. Bones and bursae: No significant degenerative changes acromioclavicular joint. Type 2 acromion. No os acromiale. Moderate subacromial/subdeltoid bursitis. No contrast extravasation into the subacromial/subdeltoid bursa. Marrow signal of the proximal humerus and the glenoid is normal for age. No acute fracture. No focal chondral defect of the glenohumeral articulation. Capsule and soft tissues: The labrum is intact. The extra-articular, and the intra-articular biceps tendon unremarkable. No intra-articular body. IMPRESSION: 1. Moderate subacromial/subdeltoid bursitis. 2. Low-grade tear at the anterior footprint of the supraspinatus. Dictated by: Armida Chong M.D. on 01/24/2025 at 16:56 Approved by: Armida Chong M.D. on 01/24/2025 at 17:07
[2025-01-24] MEDS: LIDOCAINE 1% 20 ML INJ (15:27)
[2025-01-24] MEDS: SODIUM CHLORIDE 0.9 % 20 ML VIAL IV (15:27)
== END ==
LOC: RAD 14:41
PROVIDERS: Family Provider Physician Assistant; PCP Family Medicine; Referring Provider Orthopaedic Surgery; Visit Provider Orthopaedic Surgery
DX: M75.52 Bursitis of left shoulder (principal); M75.112 Incomplete rotator cuff tear or rupture of left shoulder, not specified as traumatic; M25.812 Other specified joint disorders, left shoulder; M75.22 Bicipital tendinitis, left shoulder
CPT/HCPCS: 23350; 73040; 73222; A9579; Q9967

== ENCOUNTER 2025-05-17 21:48 | Emergency (ER) | payer OTHER, SELFPAY ==
[2025-05-17 22:02] VITALS: BP 116/59; PULSE 104; RESP 17; TEMP 37.9; O2SAT 98; BMI 28.1
--- NOTE | 2025-05-17 22:13 | EKG_ITS ---
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
--- NOTE | 2025-05-17 22:15 | DI.RAD.S_ITS ---
PROCEDURE: XR CHEST 1V INDICATIONS: Chest Pain TECHNIQUE: One view of the chest was acquired. COMPARISON: [facility], CR, XR CHEST 2V, 01/24/2023, 15:03. [facility], CR, XR CHEST 2V, 10/25/2019, 22:10. FINDINGS: Surgical changes and devices: None. Lungs and pleura: Lungs are clear. No pleural effusions or pneumothorax. Mediastinum: Mediastinal contours appear normal. Heart size is normal. Bones and chest wall: No suspicious bony lesions. Overlying soft tissues appear unremarkable. IMPRESSION: No acute cardiopulmonary abnormality is seen. Dictated by: Ronni Sanderson M.D. on 05/18/2025 at 0:27 Approved by: Ronni Sanderson M.D. on 05/18/2025 at 0:28
[2025-05-17 22:33] VITALS: PULSE 100; RESP 14; O2SAT 96
[2025-05-17 22:56] LABS: Add Manual Diff / Slide Review NO; Hematocrit 38.6 % (36-46); Hemoglobin 13.4 g/dL (12.0-16.0); Lymphocytes Absolute Auto 1000 /uL (1100-4500); Mean Corpuscular HGB Conc 34.7 % (30-36); Mean Corpuscular Hemoglobin 31.5 PG (26-34); Mean Corpuscular Volume 90.8 fL (80-100); Platelet Count 212 X10^3/uL (150-400)
[2025-05-17 22:57] LABS: Influenza A - CEPHEID Flu A NEGATIVE (NEGATIVE); Influenza B - CEPHEID Flu B NEGATIVE (NEGATIVE)
[2025-05-17 23:00] VITALS: BP 97/53; PULSE 99; RESP 23; O2SAT 96
[2025-05-17 23:05] LABS: COVID-19 CEPHEID 4-PLEX PCR Negative (Negative)
[2025-05-17 23:07] LABS: INR 1.1 (0.9-1.3); Prothrombin Time 12.1 SECONDS (9.4-12.5)
[2025-05-17 23:09] LABS: PTT Partial Thromboplastin Tim 30 SECONDS (25.1-36.5)
[2025-05-17 23:10] LABS: Alanine Aminotransferase 21 IU/L (<35); Albumin 4.5 g/dL (3.5-5.0); Albumin Globulin Ratio 1.4 (1.0-2.8); Alkaline Phosphatase 61 U/L (38-126); Blood Urea Nitrogen 25 mg/dL (7-17); Calcium 9.3 mg/dL (8.4-10.2); Carbon Dioxide 27 mmol/L (22-32); Chloride 101 mmol/L (98-107); Creatine Kinase 120 U/L (30-135); Estimated Glomerular Filt Rate > 60 mL/min (>60); Globulin 3.2 g/dL (1.7-4.1); Glucose 91 mg/dL (70-99); HEMOLYSIS < 15 (0-50); Lipase 70 U/L (23-300); Magnesium 2.0 mg/dL (1.6-2.3); Potassium 3.7 mmol/L (3.4-5.1); Sodium 136 mmol/L (137-145); Total Protein 7.7 g/dL (6.3-8.2)
[2025-05-17 23:22] LABS: NT-proBNP (BNP-Adult 18+) < 20 pg/mL (<125); Troponin I < 0.012 ng/mL (0.01-0.034)
--- NOTE | 2025-05-17 23:29 | DI.CT.S_ITS ---
PROCEDURE: CT ANGIO CHEST PE PROTOCOL INDICATIONS: concern for PE, Ddimer 1600s TECHNIQUE: After the administration of intravenous contrast, 2 mm thick sections acquired from the pulmonary apices to the posterior costophrenic angles. 3-dimensional maximum intensity projection (MIP) coronal and sagittal reformats were then acquired through the thorax. For radiation dose reduction, the following was used: automated exposure control, adjustment of mA and/or kV according to patient size. COMPARISON: [facility], CT, CT ANGIO CHEST PE PROTOCOL, 04/17/2018, 21:30. FINDINGS: Image quality: Diagnostic. Pulmonary arteries: Pulmonary arteries are normal in size, and demonstrate no intraluminal filling defects to suggest central pulmonary embolism. Lower Neck: No enlarged lymph nodes. Thyroid: No thyroid nodules which require sonographic follow up, per consensus guidelines. Axillae: No enlarged lymph nodes. Chest Wall: Unremarkable. Bones: No suspicious osseous lesion. Lungs and Pleura: No pneumothorax or pleural effusions. No consolidation or suspicious nodules. Bibasilar atelectasis. Heart: Heart size is normal. No pericardial effusion. Thoracic Vessels: No aortic aneurysm. Mediastinum and Natali: No enlarged lymph nodes. Esophagus: No wall thickening. No hiatal hernia. Upper Abdomen: Visualized upper abdomen solid organs and bowel loops appear normal. IMPRESSION: 1. No pulmonary embolism. 2. No acute airspace opacity. Dictated by: Ronni Sanderson M.D. on 05/18/2025 at 0:49 Approved by: Ronni Sanderson M.D. on 05/18/2025 at 0:54
[2025-05-17 23:30] VITALS: BP 102/59; PULSE 102; RESP 22; O2SAT 95
[2025-05-18] VITALS (9 sets, daily range): BP systolic 99–117; BP diastolic 54–60; PULSE 90–99; RESP 8–20; TEMP 37.9; O2SAT 91–98
--- NOTE | 2025-05-18 00:17 | ED_ITS ---
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 Related Data Home Medications ?Medication ?Instructions ?Recorded ?Confirmed levonorgestrel (Mirena) intrauterine 02/23/23 Previous Rx's ?Medication ?Instructions ?Recorded sertraline 50 mg tablet 100 mg (2 x 50 mg) PO DAILY #180 03/01/25 tabs dextroamphetamine-amphetamine ER 10 mg PO DAILY #30 ca ps 05/08/25 10 mg 24hr capsule,extend release (Adderall XR) methimazole 5 mg tablet 5 mg PO DAILY #90 tabs 05/10 cephalexin 500 mg capsule 500 mg PO QID 7 days #28 cap s 05/18/25 Allergies Allergy/AdvReac Type Severity Reaction Status Date / Time No Known Drug Allergies Allergy Verified 03/01/25 09:12 Patient History Medical History (Updated 05/18/25 @ 03:01 by Galileo Eden MD) Arm injury Viral URI with cough Suicidal ideation Constipation Hemorrhoids during Ovarian cyst Asthma Anxiety Trauma PTSD (post-traumatic stress disorder) Depression UTI (urinary tract infection) Type O blood, Rh negative Anemia (spontaneous vaginal delivery) (~03/02/18) (spontaneous vaginal delivery) (~11/05/13) Mastitis, right, acute (04/17/18) Healthy adult Surgical History S/P wisdom tooth extraction Family History Mother Diabetes mellitus Sister Mental health disorder Disassociation disorder Grandfather Diabetes mellitus Blind Grandmother C. difficile diarrhea Dementia Diabetes mellitus Stroke Grandfather Family estrangement Myocardial infarction Grandmother Alcoholic Family estrangement Father Family estrangement No known health problems Hypertension Social History marital status: number of children: 2 household members: spouse and children lives independently: Yes pets and animals: Yes (x 1 Dog; x 2 Cats) education level: college occupational status: employed current occupational exposures/hazards: No special irais needs: No Smoking Status: Former smoker second hand exposure: No alcohol intake: former substance use type: does not use Smoking Status: Former smoker alcohol intake frequency: other Exam Narrative Exam Narrative: GENERAL: Well-developed patient, in mild distress. HEAD: Atraumatic. Normocephalic. EYES: Pupils equal round and reactive. Extraocular motions intact. No scleral icterus. No injection or drainage. ENT: No obvious craniofacial acute trauma, no angioedema changes to lips or tongue. NECK: Trachea midline. Non tender CARDIOVASCULAR: Regular rate and rhythm without murmurs, gallops, or rubs. RESPIRATORY: Clear to auscultation. Breath sounds equal bilaterally. No wheezes, rales, or rhonchi. GASTROINTESTINAL: Abdomen soft, non-tender, nondistended. EXTREMITIES: Mild warmth medial right thigh with slight erythema. BACK: Nontender without deformity or crepitance. No flank tenderness. NEURO: AOx3. Motor functions grossly nonfocal. SKIN: No rash or erythema of visible areas Initial Vital Signs Initial Vital Signs: Vital Signs Temperature 100.3 F H 05/17/25 22:02 Pulse Rate 104 H 05/17/25 22:02 Respiratory Rate 17 05/17/25 22:02 Blood Pressure 116/59 L 05/17/25 22:02 Pulse Oximetry 98 05/17/25 22:02 Oxygen Delivery Method Room Air 05/17/25 22:02 Course Orders Ordered: ED Orders 05/17/25 22:12 Covid-19 + FLU A/B + RSV - PCR Stat 05/17/25 22:13 EKG-12 Lead Stat 05/17/25 22:15 XR chest 1V Stat 05/17/25 22:46 Complete Blood Count AUTO DIFF Stat Comprehensive Metabolic Panel Stat D Dimer Stat HCG Quantitative /Beta subunit Stat Lipase Stat Magnesium Stat NT-proBNP (BNP-Adult 18+) Stat PTT Partial Thromboplastin Oskar Stat Prothrombin Time INR Stat Troponin & CK Cardiac Panel Stat 05/17/25 23:29 CT angio chest PE protocol Stat 05/18/25 00:18 periph venous low extrem rt Stat Discontinued Medications Acetaminophen (Acetaminophen 325 Mg Tablet) 650 mg PO NOW ONE Stop: 05/18/25 00:37 Last Admin: 05/18/25 01:40 Dose: 650 mg Documented By: AYESHA Cephalexin HCl (Cephalexin 250 Mg Capsule) 500 mg PO NOW ONE Stop: 05/18/25 03:03 Last Admin: 05/18/25 03:15 Dose: 500 mg Documented By: Hydromorphone HCl (Hydromorphone Hcl 0.5 Mg/0.5 Ml Syringe) 0.5 mg IV NOW ONE Stop: 05/18/25 01:30 Last Admin: 05/18/25 01:40 Dose: 0.5 mg Documented By: AYESHA Vital Signs Vital signs: Vital Signs - 8 hr 05/17/25 23:00 05/17/25 23:00 05/17/25 23:30 Temperature Pulse Rate 99 H Respiratory Rate 23 Blood Pressure 97/53 L 102/59 L Pulse Oximetry 96 Oxygen Delivery Method 05/17/25 23:30 05/18/25 00:09 05/18/25 00:10 Temperature Pulse Rate 102 H 95 H Respiratory Rate 22 Blood Pressure 117/54 L Pulse Oximetry 95 97 Oxygen Delivery Method 05/18/25 00:10 05/18/25 00:30 05/18/25 00:30 Temperature Pulse Rate 96 H 99 H Respiratory Rate 20 Blood Pressure 108/56 L Pulse Oximetry 97 98 Oxygen Delivery Method 05/18/25 01:00 05/18/25 01:00 05/18/25 01:30 Temperature Pulse Rate 97 H Respiratory Rate 15 Blood Pressure 101/60 107/59 L Pulse Oximetry 98 Oxygen Delivery Method 05/18/25 01:30 05/18/25 02:00 05/18/25 02:00 Temperature Pulse Rate 96 H 90 Respiratory Rate 15 8 L Blood Pressure 100/55 L Pulse Oximetry 98 91 Oxygen Delivery Method 05/18/25 02:10 05/18/25 02:10 05/18/25 02:30 Temperature 100.2 F H 100.2 F H Pulse Rate Respiratory Rate Blood Pressure 100/56 L Pulse Oximetry Oxygen Delivery Method 05/18/25 02:30 05/18/25 03:00 05/18/25 03:00 Temperature Pulse Rate 90 90 Respiratory Rate 13 8 L Blood Pressure 99/57 L Pulse Oximetry 93 93 Oxygen Delivery Method Room Air Medical Decision Making Lab Data Lab results reviewed: Yes I reviewed the patient's lab results. Lab results narrative: White blood cell count 3900, hemoglobin 13.4, platelets adequate. Glucose 91. Normal renal function, serum CO2, potassium. Sodium 136 slight low. Liver functions and lipase normal. COVID flu RSV negative. Troponin negative/unmeasurable. BNP negative/unmeasurable. D-dimer 1675 elevated. 05/17/25 22:46 05/17/25 22:46 Labs: Lab Results 05/17/25 05/17/25 Range/Units 22:12 22:46 WBC 3.9 L (4.5-11.0) X10^3/uL RBC 4.25 (4.0-5.2) X10^6/uL Hgb 13.4 (12.0-16.0) g/dL Hct 38.6 (36-46) % MCV 90.8 (80-100) fL MCH 31.5 (26-34) PG MCHC 34.7 (30-36) % RDW 12.7 (11.6-14.8) % Plt Count 212 (150-400) X10^3/uL Neut % (Auto) 58.2 (50-75) % Lymph % (Auto) 26.4 (25-40) % [place] % (Auto) 13.1 (3-14) % Eos % (Auto) 1.6 L (2-4) % Baso % (Auto) 0.7 (0-2) % Neut # (Auto) 2300 (9958-7870) /uL Lymph # (Auto) 1000 L (9843-7395) /uL [place] # (Auto) 500 (0-900) /uL Eos # (Auto) 100 (0-450) /uL Baso # (Auto) 0 (0-100) /uL PT 12.1 (9.4-12.5) SECONDS INR 1.1 (0.9-1.3) APTT 30 (25.1-36.5) SECONDS D-Dimer 1675 H (<500) ng/ml Sodium 136 L (137-145) mmol/L Potassium 3.7 (3.4-5.1) mmol/L Chloride 101 (98-107) mmol/L Carbon Dioxide 27 (22-32) mmol/L BUN 25 H (7-17) mg/dL Creatinine 0.98 (0.52-1.04) mg/dL Estimated GFR > 60 (>60) mL/min BUN/Creatinine Ratio 25.5 H (6-22) Glucose 91 (70-99) mg/dL Calcium 9.3 (8.4-10.2) mg/dL Magnesium 2.0 (1.6-2.3) mg/dL Total Bilirubin 0.4 (0.2-1.3) mg/dL AST 30 (14-36) IU/L ALT 21 (<35) IU/L Alkaline Phosphatase 61 (38-126) U/L Total Creatine Kinase 120 (30-135) U/L Troponin I < 0.012 (0.01-0.034) ng/mL NT-Pro-B Natriuret Pep < 20 (<125) pg/mL Total Protein 7.7 (6.3-8.2) g/dL Albumin 4.5 (3.5-5.0) g/dL Globulin 3.2 (1.7-4.1) g/dL Albumin/Globulin Ratio 1.4 (1.0-2.8) Lipase 70 (23-300) U/L HCG, Quant < 2.39 mIU/mL SARS-CoV-2 (PCR) Negative (Negative) Influenza A (RT-PCR) Flu a negative (NEGATIVE) Influenza B (RT-PCR) Flu b negative (NEGATIVE) RSV (PCR) Negative (Negative) Imaging Data Chest x-ray: Radiologist's Impression: Mis Danielle??30??F??1995 ? Allergy/Adv: No Known Drug Allergies [address] [address] XRay Report Signed Patient: Mis Danielle MR#: [id number] : 1995 Acct:[id number] Age/Sex: 30 / F Date of Service: 05/17/25 Loc: ED Accession Number: [id number] Procedure: XR chest 1V Ordering Provider: Galileo Eden MD PROCEDURE: XR CHEST 1V INDICATIONS: Chest Pain TECHNIQUE: One view of the chest was acquired. COMPARISON: [facility], CR, XR CHEST 2V, 01/24/2023, 15:03. [facility], CR, XR CHEST 2V, 10/25/2019, 22:10. FINDINGS: Surgical changes and devices: None. Lungs and pleura: Lungs are clear. No pleural effusions or pneumothorax. Mediastinum: Mediastinal contours appear normal. Heart size is normal. Bones and chest wall: No suspicious bony lesions. Overlying soft tissues appear unremarkable. IMPRESSION: No acute cardiopulmonary abnormality is seen. Dictated by: Ronni Sanderson M.D. on 05/18/2025 at 0:27 Approved by: Ronni Sanderson M.D. on 05/18/2025 at 0:28 CT chest angio PE study: Radiologist's Impression: [address] [address] [address] Scan Report Signed Patient: Mis Danielle MR#: [id number] : 1995 Acct:[id number] Age/Sex: 30 / F Date of Service: 05/17/25 Loc: ED Accession Number: [id number] Procedure: CT angio chest PE protocol Ordering Provider: Galileo Eden MD PROCEDURE: CT ANGIO CHEST PE PROTOCOL INDICATIONS: concern for PE, Ddimer 1600s TECHNIQUE: After the administration of intravenous contrast, 2 mm thick sections acquired from the pulmonary apices to the posterior costophrenic angles. 3-dimensional maximum intensity projection (MIP) coronal and sagittal reformats were then acquired through the thorax. For radiation dose reduction, the following was used: automated exposure control, adjustment of mA and/or kV according to patient size. COMPARISON: [facility], CT, CT ANGIO CHEST PE PROTOCOL, 04/17/2018, 21:30. FINDINGS: Image quality: Diagnostic. Pulmonary arteries: Pulmonary arteries are normal in size, and demonstrate no intraluminal filling defects to suggest central pulmonary embolism. Lower Neck: No enlarged lymph nodes. Thyroid: No thyroid nodules which require sonographic follow up, per consensus guidelines. Axillae: No enlarged lymph nodes. Chest Wall: Unremarkable. Bones: No suspicious osseous lesion. Lungs and Pleura: No pneumothorax or pleural effusions. No consolidation or suspicious nodules. Bibasilar atelectasis. Heart: Heart size is normal. No pericardial effusion. Thoracic Vessels: No aortic aneurysm. Mediastinum and Natali: No enlarged lymph nodes. Esophagus: No wall thickening. No hiatal hernia. Upper Abdomen: Visualized upper abdomen solid organs and bowel loops appear normal. IMPRESSION: 1. No pulmonary embolism. 2. No acute airspace opacity. Dictated by: Ronni Sanderson M.D. on 05/18/2025 at 0:49 Approved by: Ronni Sanderson M.D. on 05/18/2025 at 0:54 Ultrasound right lower extremity venous Doppler: Radiologist's Impression: [address] [address] Ultrasound Report Signed Patient: Mis Danielle MR#: [id number] : 1995 Acct:[id number] Age/Sex: 30 / F Date of Service: 05/18/25 Loc: ED Accession Number: [id number] Procedure: perip venous low extrem rt Ordering Provider: Galileo Eden MD PROCEDURE: PERIPH VENOUS LOW EXTREM RT INDICATIONS: R leg pain swelling TECHNIQUE: Real-time imaging, as well as color and pulse Doppler interrogation, were performed of the lower extremity deep veins from the inguinal ligament to the popliteal fossa, with documentation of the visualized calf veins. COMPARISON: [facility], [place], CT ANGIO CHEST PE PROTOCOL, 05/17/2025, 23:46. [facility], , PERIPH VENOUS LOW EXTREM RT, 10/15/2020, 10:17. FINDINGS: The common femoral, femoral, popliteal, and the visualized calf veins are normally compressible, and free of intraluminal thrombus. Color and pulse Doppler demonstrate normal phasic intraluminal flow. There is normal augmentation response to distal compression maneuver. Evaluation of the greater saphenous vein at the knee. No flow seen. IMPRESSION: No findings of lower extremity deep venous thrombosis. Dictated by: Ronni Sanderson M.D. on 05/18/2025 at 2:12 Approved by: Ronni Sanderson M.D. on 05/18/2025 at 2:13 ECG Data Interpretation: 2222, normal sinus rhythm with rate of 98, no obvious ST segment elevation or depression changes. W[place] 140, QRS 88, QTC 467. [facility] Narrative Medical decision making narrative: 30-year-old female status post recent right thigh vein occlusion procedure, with increasing pain in swelling to the right thigh, also right anterior chest pain. Concern for possible clot in legs and/or lung. Labs pending. Consider CT angio chest if GFR favorable, consider ultrasound bilateral lower extremities. Chest x-ray, no acute changes. See radiology report. Lab data: White blood cell count 3900, hemoglobin 13.4, platelets adequate. Glucose 91. Normal renal function, serum CO2, potassium. Sodium 136 slight low. Liver functions and lipase normal. COVID flu RSV negative. Troponin negative/unmeasurable. BNP negative/unmeasurable. D-dimer [address] angiogram chest PE protocol, no PE confirmed, no acute thoracic process identified. See radiology report. Ultrasound venous Doppler right lower extremity without DVT. See radiology report. Low-grade fever with some pain in inflammatory change right lower extremity, could be post operative vein occlusion inflammation related. Consider cellulitis. Trial of antibiotics. Patient seems agreeable. Oral 1st dose of cephalexin given in the emergency department, prescription for further 7 day course cephalexin prescription sent to her pharmacy. Discharged home. Return precautions discussed. Discharge Plan Departure Patient Disposition: Home Clinical Impression: Cellulitis of right leg, Chest pain Activity Restrictions/Additional Instructions: Recent right vein sclerosis procedure, subsequent pain to the right leg with some swelling. Also right anterior chest pain without trauma. Low-grade fever noted. Chest x-ray unremarkable. EKG and blood testing not suggestive of heart attack or cardiac issues at this time. CT angiogram of the chest showed no blood clots to the lungs, or acute thoracic chest process. Ultrasound of the right lower extremity did not show evidence of DVT. Consider cellulitis, though low-grade fever and right leg pain might be just from local inflammatory response to the sclerosing procedure itself, not necessarily data entry representative of bacterial infection or complication. Trial of cephalexin antibiotic, 1st dose oral in the emergency department, prescription sent for further course to your pharmacy. Take Tylenol as needed for fever and pain control. Recheck symptoms with your regular doctor early this next week. Return to this/nearest emergency department for any change worsening symptoms or any concerns prior. Prescriptions: New cephalexin 500 mg capsule 500 mg PO QID 7 Days Qty: 28 0RF No Action dextroamphetamine-amphetamine [Adderall XR] 10 mg capsule,extended release 24hr 10 mg PO DAILY Qty: 30 0RF Rx Instructions: Take one capsule once daily methimazole 5 mg tablet 5 mg PO DAILY Qty: 90 3RF Mirena 21 mcg/24 hours (8 yrs) 52 mg intrauterine device intrauterine sertraline 50 mg tablet 100 mg PO DAILY Qty: 180 1RF Rx Instructions: Take 2 tablets once daily. May decrease to 1.5 tabs if not tolerated Referrals: Carlos Gonzales MD [Primary Care Provider, Family Practice] Stand Alone Forms: Patient Portal/API
[2025-05-18] MEDS: ACETAMINOPHEN 325 MG TABLET 650 MG PO (01:40)
[2025-05-18 02:07] LABS: HCG Quantitative /Beta subunit < 2.39 mIU/mL
== END 2025-05-18 03:16 | disposition home or self-care (01) ==
PROVIDERS: Emergency Provider Emergency Medicine; Family Provider Physician Assistant; PCP Family Medicine
DX: L03.115 Cellulitis of right lower limb (principal); R07.9 Chest pain, unspecified
CPT/HCPCS: 36415; 71045; 71275; 80053; 82550; 83690; 83735; 83880; 84484; 84702; 85025; 85379; 85610; 85730; 87637; 93005; 93010; 93971; 96374; 99284; J1171; Q9967

== ENCOUNTER → 2025-05-27 10:37 | Outpatient (CLI) | payer OTHER, SELFPAY | PROVIDERS: Family Provider Physician Assistant; PCP Family Medicine; Visit Provider Nurse Practitioner Family | DX: J02.9 Acute pharyngitis, unspecified (principal) | CPT/HCPCS: 87070; 87077; 87147 ==

== ENCOUNTER → 2025-06-30 16:25 | Outpatient (CLI) | payer OTHER, SELFPAY | PROVIDERS: Family Provider Physician Assistant; PCP Family Medicine; Visit Provider Registered Nurse | DX: J02.9 Acute pharyngitis, unspecified (principal) | CPT/HCPCS: 87070 ==